=== PATIENT | female | born 1950 | race Caucasian/White ===

== ENCOUNTER 2018-05-27 01:16 | Emergency (ER) | payer MEDICARE, SELFPAY ==
[2018-05-27 01:16] VITALS: BP 196/80; PULSE 68; RESP 15; TEMP 36.7; O2SAT 98; BMI 38.7
[2018-05-27 01:19] VITALS: O2SAT 97
--- NOTE | 2018-05-27 01:37 | RAD_ITS ---
STUDY: X-RAY CHEST REASON FOR EXAM: Female, 67 years old. Cough for several weeks. Difficulty catching breath. TECHNIQUE: PA and lateral chest. COMPARISON: None. FINDINGS: The lungs are clear and expanded. There is no demonstrated pleural abnormality. Moderately elevated right hemidiaphragm. Normal size heart. Normal mediastinum and mark. Normal visualized pulmonary arteries. Normal visualized aortic arch and descending thoracic aorta. Normal visualized thoracic spine. Degenerative changes of both shoulders. There is no demonstrated abnormality of the visualized soft tissue structures of the upper abdomen. RAD/Chest PA and Lateral IMPRESSION: No acute cardiopulmonary disease. Elevated right hemidiaphragm. Electronically Signed: Maxx Vieyra MD at 2:30 EDT , Service support ,
[2018-05-27] MEDS: Albuterol 2.5 MG/3 ML VIAL.NEB. INHALATION (01:52)
[2018-05-27 01:53] VITALS: PULSE 70; RESP 19
[2018-05-27] MEDS: Ipratropium/Albuterol Sulfate 3 ML AMPUL.NEB INHALATION (01:53)
[2018-05-27 02:10] LABS: Absolute Lymphocyte Count 1.77 X10^3/ul (0.83-4.51); Absolute Neutrophil Count 4.7 X10^3/uL (2.0-7.7); Basophil# 0.04 X10^3/uL; Basophil% 0.5 % (0-1); Eosinophil# 0.45 X10^3/uL; Eosinophils% 5.5 % (0-5); Hematocrit 41.4 % (37-47); Hemoglobin 14.4 g/dl (12.0-15.0); Lymphocyte # 1.77 X10^3/ul (4.0); Lymphocyte % 21.7 % (19-41); Mean Corp Hgb Conc 34.8 g/gl (32-36); Mean Corpuscular Hgb 30.2 pg (27.0-32.0); Mean Corpuscular Volume 86.8 fL (81-99); Mean Platelet Vol. 11.9 fl (6.2-12.0); Monocyte# 1.23 X10^3/uL; Monocyte% 15.1 % (0-10); Neutrophil # 4.65 X10^3/uL (2.7-7.7); Platelet Count 195 K/mm3 (150-450); RBC Distribution Width CV 12.5 % (11.6-14.6); Red Blood Count 4.77 M/mm3 (4.2-5.4); White Blood Count 8.2 K/mm3 (4.4-11.0)
[2018-05-27 02:11] LABS: POSITIVE COUNT NO; POSITIVE DIFFERENTIAL NO; POSITIVE MORPHOLOGY NO
[2018-05-27 02:35] LABS: Anion Gap 7 (5-15); BUN 23 mg/dL (7-18); BUN/Creat Ratio 26.7 RATIO (10-20); Calcium,Total 8.4 mg/dL (8.5-10.1); Chloride 103 mmol/L (98-107); Creatinine, Serum 0.86 mg/dL (0.55-1.02); EST Glomerular Filtration Rate 70 mL/min (>60); Est Glom Filt Rate - Afr Amer 85 mL/min (>60); Estimated Creatinine Clearance 59.42 ml/min; Glucose 113 mg/dL (74-106); Potassium 4.2 mmol/L (3.5-5.1); Sodium Level 135 mmol/L (136-145)
[2018-05-27] MEDS: Doxycycline 100 MG CAPSULE PO (03:36)
--- NOTE | 2018-05-27 03:37 | ED.DCSUM_ITS ---
- ER Visit Summary Date of Service: 05/27/18 Chief Complaint: Nonproductive cough for 2 and half weeks with increased shortness of breath this evening after drinking honey History of Present Illness: The patient is a 67 F who has had a nonproductive cough for 2 and half weeks. She is a non-smoker. She denies headache, rhinorrhea, congestion, earache, tinnitus, sore throat, fever or chills. She states she had some difficulty after using the restroom. She drank honey thinking this would make her cough better. She reported increased coughing. She denies history of coronary disease. She denies history of PE or DVT. She has no risk factors for either. She denies leg pain, swelling or discoloration. She denies any GI, or coronary symptoms. Please read written note for complete detail Physical Examination: Blood pressure is elevated 196/80. She is not febrile nor she hypoxic. Head is atraumatic normocephalic. Pupils are equal round reactive. Extraocular muscles are intact. TMs are pearly white with landmarks noted. Nares patent with no drainage. Posterior pharynx without erythema or exudate. Uvula is midline. There is no dysphonia or dysphasia. Trachea is midline. There is no stridor with auscultation of the neck. Heart is regular without murmur, gallop or rub. Lungs revealed diminished breath sounds increase x-ray phase with wheezing noted bilaterally. There is no egophony. Abdomen is soft nontender. There is no hepatosplenomegaly. Bowel sounds are present normal. There is no asymmetry, swelling, discoloration, leg vein distention, palpable cords or tenderness along the distribution of the deep venous system. Neuro exam is nonfocal Test Results: Two-view chest x-ray was interpreted by me as negative for infiltrate. There is no cardiomegaly, mediastinum appears normal. There is no abnormality osseous structures. CBC is unremarkable. BMP is unremarkable. Emergency Department Course and Treatment: To evaluate patient's cough for the past 2 and half weeks with increased shortness of breath chest x-ray was obtained to evaluate for pneumonia. Blood work was obtained in the event she had pneumonia to stratify her for outpatient versus inpatient treatment. Because of wheezing she was treated with aerosol. On reassessment she was noted to be wheeze free with more air movement. She also reports her cough is less. With forced expiration there is a fine wheeze noted. Treatment Plan: Since she has minimal wheezing with forced expiration after treatment she received a dose of Decadron, first dose of antibiotic, doxycycline 100 mg, Hycodan cough syrup and respiratory therapy to instruct on use of inhaler since she has not used one before. Disposition: Discharged home in stable improved condition Impression: 1. Bronchitis 2. Bronchospasm 3. Transient hypertension in a known hypertensive patient This note was generated with [employer] dictation software. It may contain incorrect words, spelling, and punctuation that were not noted in review of the chart prior to signing ED Disposition - Plan for ED Patient: Disposition: Home or Assisted Living Chief Complaint: Cough Instructions: ED Upper Resp Infec Abx Tx Prescriptions: Hydrocodone Bit/Homatropine [Hycodan Syrup] 5 ml PO Q6H PRN PRN #60 udc PRN Reason: Cough Doxycycline Monohydrate 100 mg PO BID #14 cap Additional Instructions: Follow-up with Dr. Briggs in 3-5 days if there is no improvement.
[2018-05-27 03:38] VITALS: BP 168/79; PULSE 61; RESP 17; O2SAT 96
== END 2018-05-27 03:52 | disposition home or self-care (01) ==
PROVIDERS: Emergency Provider Emergency Medicine; Family Provider Internal Medicine; PCP Internal Medicine
DX: J40 Bronchitis, not specified as acute or chronic (principal); I10 Essential (primary) hypertension; Z87.01 Personal history of pneumonia (recurrent)
CPT/HCPCS: 71046; 80048; 85025; 94640; 99285; A4216

== ENCOUNTER → 2018-08-21 08:48 | Outpatient (CLI) | payer MEDICARE, SELFPAY ==
--- NOTE | 2018-08-21 08:50 | US_ITS ---
STUDY: THYROID ULTRASOUND REASON FOR EXAM: Female, 67 years old. Multinodular goiter. TECHNIQUE: Ultrasound evaluation of the thyroid was performed with real-time and static merritt-scale imaging. COMPARISON: June 04, 2017. FINDINGS: RIGHT LOBE: The right lobe of the thyroid gland measures 5.7 x 2.9 x 2 point cm. There is a homogeneous echotexture. Multiple nodules throughout the right outer. The largest in the lower pole measures 2.4 x 2.6 x 2.2 cm and is predominantly solid with cystic areas. LEFT LOBE: The left lobe of the thyroid gland measures 5.2 x 2.5 x 2.5 cm. There is a heterogeneous echotexture. There are multiple nodules. The largest is a complex 1.7 x 1.7 x 1 cm nodule in the mid thyroid. There is peripheral and intrahepatic nodular vascularity. ISTHMUS: The isthmus measures 0.6 cm. The regional lymph nodes are normal. US/Thyroid IMPRESSION: Findings consistent with multinodular goiter. No major interval change. Electronically Signed: Haider Miller DO at 22:30 EDT Tel [phone], Service support ,
== END ==
PROVIDERS: Family Provider Internal Medicine; PCP Internal Medicine; Referring Provider Internal Medicine; Visit Provider Internal Medicine
DX: E04.2 Nontoxic multinodular goiter (principal)
CPT/HCPCS: 76536

== ENCOUNTER → 2019-05-28 13:38 | Outpatient (CLI) | payer MEDICARE, SELFPAY ==
[2019-05-02 09:33] VITALS: BMI 38.7
[2019-05-28 15:18] LABS: Hematocrit 43.1 % (37-47); Hemoglobin 14.8 g/dL (12.0-15.0); Mean Corp Hgb Conc 34.3 g/dL (32-36); Mean Corpuscular Hgb 30.8 pg (27.0-32.0); Mean Corpuscular Volume 89.6 fL (81-99); Mean Platelet Vol. 12.4 fl (6.2-12.0); Platelet Count 249 K/mm3 (150-450); RBC Distribution Width SD 39.2 fl (35.1-43.9); Red Blood Count 4.81 M/mm3 (4.2-5.4); White Blood Count 6.1 K/mm3 (4.4-11.0)
== END ==
PROVIDERS: Family Provider Internal Medicine; PCP Internal Medicine; Referring Provider Otolaryngology; Visit Provider Otolaryngology
DX: J39.2 Other diseases of pharynx (principal)
CPT/HCPCS: 36415; 85027

== ENCOUNTER → 2019-06-01 15:42 | Outpatient (CLI) | payer MEDICARE, SELFPAY ==
[2019-05-02 09:33] VITALS: BMI 38.7
--- NOTE | 2019-06-01 12:05 | MASS_PTH ---
PATIENT: CUAUHTEMOC ARRINGTON LOC: [facility] U#:[id number] AGE/SX: 75/F ROOM: RE06/01/[address]: Dr. Tirso Sharma MD : 1950 BED: DIS: SPEC #: [id number] RECD: 06/01/19 15:11 STATUS: TORIBIO JOANN #: [id number] DAVID: 06/01/19 12:[address]: Tirso Sharma DEPT: SURGICAL PATHOLOGY RECD BY: Jayesh Valentino ENTERED: 06/02/19 08:55 SP TYPE: Mass OTHR DR: Dr. Nora Briggs, [facility] Tissues: Oropharynx, NOS Procedures: Surgery Specimen Level IV HEADER OPERATION: Excision oropharyngeal mass PRE-OP DIAGNOSIS: Oropharyngeal mass TISSUE SUBMITTED: Oropharyngeal mass MICROSCOPIC DIAGNOSIS Oropharyngeal mass, biopsy: Chronic inflammation. Dilated ducts. Negative for malignancy. See microscopic description and comment. SJ:virginie 06/02/19 COMMENT Case has been reviewed in consultation with Dr. Swenson who concurs with the above diagnosis. IDC:AM MICROSCOPIC DESCRIPTION Slides are reviewed. The specimen consists of minor salivary gland tissue with overlying squamous epithelium. A few dilated ducts are noted. Moderate chronic inflammation is also noted. GROSS DESCRIPTION Received is one container labeled with the patient's name and not further designated. The specimen consists of an irregular fragment of morgan tissue measuring 1 x 0.5 x 0.2 cm. The specimen is bisected and totally submitted in one cassette. / AM:virginie 06/02/19 TC:5 CPT: 12929
== END ==
PROVIDERS: Family Provider Internal Medicine; PCP Internal Medicine; Referring Provider Otolaryngology; Visit Provider Otolaryngology
DX: J39.2 Other diseases of pharynx (principal)
CPT/HCPCS: 88305

== ENCOUNTER → 2019-07-24 11:15 | Outpatient (CLI) | payer MEDICARE, SELFPAY ==
[2019-05-02 09:33] VITALS: BMI 38.7
--- NOTE | 2019-07-24 11:18 | US_ITS ---
STUDY: THYROID ULTRASOUND REASON FOR EXAM: Female, 68 years old. Multiple nodular goiter TECHNIQUE: Ultrasound evaluation of the thyroid was performed with real-time and static merritt-scale imaging. COMPARISON: August 21, 2018. FINDINGS: RIGHT LOBE: The right lobe of the thyroid gland measures 5.2 x 3.2 x 2.7 cm. There is a heterogeneous echotexture. There is a mid to lower thyroid nodular mass measuring 2.6 x 2.8 x 2.2 cm, similar to previous study. It is again noted to be predominantly solid with some cystic areas. Other subcentimeter nodules on the previous study are not appreciated LEFT LOBE: The left lobe of the thyroid gland measures 4.5 x 2.3 x 2.2 cm. There is a heterogeneous echotexture. There is a relatively stable cystic 6 x 9 x 5 mm mid thyroid nodule. This is a relatively stable mid thyroid 1.4 x 1.5 x 1.1 cm mildly hypoechoic, likely solid nodule. There is a lower pole 1.6 x 1.3 x 1.3 cm solid nodule, larger than on previous study. ISTHMUS: The isthmus measures 5 mm . The regional lymph nodes are normal. US/Thyroid IMPRESSION: Relatively stable nodules as noted of the thyroid. Larger nodule in the lower pole of the left thyroid lobe. Electronically Signed: David Menon DO at 21:54 EDT Tel [phone], Service support ,
== END ==
PROVIDERS: Family Provider Internal Medicine; PCP Internal Medicine; Referring Provider Internal Medicine; Visit Provider Internal Medicine
DX: E04.2 Nontoxic multinodular goiter (principal)
CPT/HCPCS: 76536

== ENCOUNTER → 2019-10-12 10:15 | Outpatient (CLI) | payer MEDICARE, SELFPAY ==
[2019-05-02 09:33] VITALS: BMI 38.7
[2019-10-12 11:56] LABS: Thyroid Stim Hormone (TSH) 1.13 uIU/mL (0.358-3.74)
== END ==
PROVIDERS: Family Provider Internal Medicine; PCP Internal Medicine
DX: E04.2 Nontoxic multinodular goiter (principal)
CPT/HCPCS: 36415; 84443

== ENCOUNTER → 2021-05-04 09:23 | Outpatient (CLI) | payer MEDICARE, SELFPAY ==
[2019-05-02 09:33] VITALS: BMI 38.7
[2021-05-04 10:44] LABS: Vitamin D,25 Hydroxy 61.7 ng/mL
[2021-05-04 10:52] LABS: Anion Gap 7 (5-15); BUN 21 mg/dL (7-18); BUN/Creat Ratio 30.7 RATIO (10-20); Calcium,Total 8.8 mg/dL (8.5-10.1); Chloride 105 mmol/L (98-107); Creatinine, Serum 0.68 mg/dL (0.55-1.02); EST Glomerular Filtration Rate 90 mL/min (>60); Est Glom Filt Rate - Afr Amer 109 mL/min (>60); Glucose 100 mg/dL (74-106); Potassium 4.5 mmol/L (3.5-5.1); Sodium Level 137 mmol/L (136-145); Thyroid Stim Hormone (TSH) 1.04 uIU/mL (0.358-3.74)
== END ==
PROVIDERS: PCP Internal Medicine; Referring Provider Internal Medicine Endocrinology, Diabetes & Metabolism; Visit Provider Internal Medicine Endocrinology, Diabetes & Metabolism
DX: E04.2 Nontoxic multinodular goiter (principal); E55.9 Vitamin D deficiency, unspecified
CPT/HCPCS: 36415; 80048; 82306; 84443

== ENCOUNTER 2021-12-20 12:44 | Outpatient (CLI) | payer MEDICARE, SELFPAY ==
--- NOTE | 2021-12-20 12:48 | BI_ITS ---
MAMMOGRAPHY - BILATERAL SCREENING REASON FOR EXAM: Female, 71 years old. Routine annual screening examination. PERTINENT HISTORY: Non-contributory. Personal history of melanoma. TECHNIQUE: Digital bilateral breast desire (3D mammographic acquisition) in the CC and MLO projections. 2-D mediolateral oblique (MLO) and craniocaudad (CC) views of both breasts were obtained. CAD: Full Field Digital Mammography with Computer Added Detection was performed. COMPARISON: Comparison is made with prior study dated 07/24/2013. FINDINGS: Breast Composition: The breasts are almost entirely fatty. There are no dominant masses or suspicious calcifications. Multiple scattered calcifications in both breasts. Surgical clips are seen in the right axillary region in keeping with a history of prior right axillary node dissection for melanoma. No other significant abnormalities are identified. There has been no significant change since the prior study. BI/SCRN MAMM (CAD)W/DESIRE BILAT IMPRESSION: Stable bilateral screening mammogram. Yearly follow-up mammogram recommended. (A) ASSESSMENT CATEGORY: BIRADS Category 2: Benign. A letter regarding these results will be sent to the patient by the facility within 30 days. Approximately 10% of breast cancers are not detected by mammography. A normal mammogram should not delay biopsy of a clinically suspicious abnormality. [id number] Electronically Signed: Jono Olivares MD at 13:42 EST ,
== END 2021-12-20 23:59 | disposition home or self-care (01) ==
LOC: OPBI 12:45
PROVIDERS: PCP Internal Medicine; Referring Provider Internal Medicine; Visit Provider Internal Medicine
DX: Z12.31 Encounter for screening mammogram for malignant neoplasm of breast (principal)
CPT/HCPCS: 77063; 77067

== ENCOUNTER → 2022-04-13 | Outpatient (CLI) | payer MEDICARE, SELFPAY ==
[2022-04-13 17:48] LABS: ALB/GLOB Ratio 1.1 RATIO (0.9-2.4); AST(SGOT) 21 U/L (15-37); Alanine Aminotransfer ALT/SGPT 25 U/L (13-56); Albumin, Serum 3.7 g/dL (3.2-5.0); Alkaline Phosphatase 45 U/L (45-117); Anion Gap 6 (5-15); BUN 26 mg/dL (7-18); BUN/Creat Ratio 32.1 RATIO (10-20); Calcium,Total 8.8 mg/dL (8.5-10.1); Chloride 105 mmol/L (98-107); Creatinine, Serum 0.81 mg/dL (0.55-1.02); EST Glomerular Filtration Rate 74 mL/min (>60); Est Glom Filt Rate - Afr Amer 90 mL/min (>60); Globulin 3.3 g/dL (2.2-4.2); Glucose 109 mg/dL (74-106); Potassium 4.5 mmol/L (3.5-5.1); Sodium Level 138 mmol/L (136-145); Thyroid Stim Hormone (TSH) 0.91 uIU/mL (0.358-3.74)
== END | disposition home or self-care (01) ==
PROVIDERS: PCP Internal Medicine; Referring Provider Internal Medicine Endocrinology, Diabetes & Metabolism; Visit Provider Internal Medicine Endocrinology, Diabetes & Metabolism
DX: E04.2 Nontoxic multinodular goiter (principal)
CPT/HCPCS: 36415; 80053; 84443

== ENCOUNTER → 2022-11-26 | Outpatient (CLI) | payer MEDICARE, SELFPAY ==
--- NOTE | 2022-11-26 10:14 | RAD_ITS ---
INDICATION: SPINAL STENOSIS -- LUMBAR REGION EXAMINATION/TECHNIQUE: X-RAY - XR Bone Length Studies Scanograms 3 sequential AP radiographs of the lower extremities with composite image. COMPARISON: CT abdomen and pelvis December 25, 2015. FINDINGS: 5.5 degree rightward down pelvic tilt. Mild bilateral hip joint space narrowing. No coxa valgus or varus Right knee arthroplasty with mild genu valgus. No perihardware lucency or evidence of hardware failure. Left knee medial compartment joint space narrowing and moderate osteophyte formation with loss of the typical slight valgus angulation. No overt varus angulation Right lower extremity measures 53.4 cm from superior femoral head to the prosthesis intercondylar notch and 97.7 cm from superior femoral head to tibial plafond Left lower extremity measures 54.5 cm from superior femoral head to the intercondylar notch and 99.1 cm from superior femoral head to tibial plafond RAD/Bone Length IMPRESSION: Lower down pelvic tilt with leg lengths as above. Left knee medial compartment osteoarthritis. Prior right knee arthroplasty. Electronically Signed: Perfecto Holden MD at 3:52 EST ,
== END | disposition home or self-care (01) ==
LOC: RAD 10:13
PROVIDERS: PCP Internal Medicine; Referring Provider Specialist; Visit Provider Specialist
DX: M48.061 Spinal stenosis, lumbar region without neurogenic claudication (principal)
CPT/HCPCS: 77073

== ENCOUNTER → 2023-01-01 | Outpatient (CLI) | payer MEDICARE, SELFPAY ==
[2023-01-01 10:37] LABS: Vitamin D,25 Hydroxy 64.4 ng/mL
[2023-01-01 10:54] LABS: ALB/GLOB Ratio 1.1 RATIO (0.9-2.4); AST(SGOT) 14 U/L (15-37); Alanine Aminotransfer ALT/SGPT 22 U/L (13-56); Albumin, Serum 3.6 g/dL (3.2-5.0); Alkaline Phosphatase 41 U/L (45-117); Anion Gap 7 (5-15); BUN 16 mg/dL (7-18); BUN/Creat Ratio 22.9 RATIO (10-20); Calcium,Total 8.6 mg/dL (8.5-10.1); Chloride 104 mmol/L (98-107); EST Glomerular Filtration Rate 88 mL/min (>60); Est Glom Filt Rate - Afr Amer 106 mL/min (>60); Globulin 3.2 g/dL (2.2-4.2); Glucose 97 mg/dL (74-106); Potassium 4.1 mmol/L (3.5-5.1); Protein, Total 6.8 g/dL (6.4-8.2); Sodium Level 138 mmol/L (136-145); Thyroid Stim Hormone (TSH) 0.96 uIU/mL (0.358-3.74)
== END | disposition home or self-care (01) ==
LOC: LAB 09:34
PROVIDERS: PCP Internal Medicine; Visit Provider Internal Medicine Endocrinology, Diabetes & Metabolism
DX: E04.2 Nontoxic multinodular goiter (principal); E55.9 Vitamin D deficiency, unspecified
CPT/HCPCS: 36415; 80053; 82306; 84443

== ENCOUNTER → 2023-02-12 | Outpatient (CLI) | payer MEDICARE, SELFPAY ==
--- NOTE | 2023-02-12 09:06 | RAD_ITS ---
STUDY: X-RAY - ESOPHAGUS (BARIUM SWALLOW) WITH FLUOROSCOPY REASON FOR EXAM: Female, 72 years old. DYSPHAGIA TECHNIQUE: 30 view(s) of the esophagus were obtained following swallowing of barium. FLUOROSCOPY TIME (if supplied): (49 seconds) minutes/seconds. 54.12 mGy COMPARISON: None. FINDINGS: There is no demonstrated esophageal foreign body. There is no demonstrated stricture or mucosal abnormality. Small hiatal hernia with weblike stenosis at the gastroesophageal junction. The patient ingested a 12 mm tablet of barium. The tablet is trapped at the gastroesophageal junction. There is atherosclerotic calcification of the aortic arch with tortuosity of the descending aorta. Normal visualized pulmonary parenchyma. There are diffuse degenerative changes of the visualized thoracic spine. RAD/Esophagus Dual Contrast IMPRESSION: Small sliding hiatal hernia with a weblike stenosis at the gastroesophageal junction with trapping of the 12 mm tablet of barium. Electronically Signed: Jono Olivares MD at 15:34 EDT ,
== END | disposition home or self-care (01) ==
PROVIDERS: PCP Internal Medicine; Referring Provider Internal Medicine; Visit Provider Internal Medicine
DX: R13.10 Dysphagia, unspecified (principal)
CPT/HCPCS: 74221

== ENCOUNTER → 2023-06-03 | Outpatient (CLI) | payer MEDICARE, SELFPAY ==
[2023-06-03 13:03] LABS: Anion Gap 5 (5-15); BUN 19 mg/dL (7-18); BUN/Creat Ratio 20.4 RATIO (10-20); Calcium,Total 10.9 mg/dL (8.5-10.1); Chloride 99 mmol/L (98-107); Creatinine, Serum 0.93 mg/dL (0.55-1.02); EST Glomerular Filtration Rate 63 mL/min (>60); Est Glom Filt Rate - Afr Amer 76 mL/min (>60); Glucose 105 mg/dL (74-106); Potassium 4.3 mmol/L (3.5-5.1); Sodium Level 135 mmol/L (136-145)
== END | disposition home or self-care (01) ==
LOC: LAB 10:44
PROVIDERS: PCP Internal Medicine; Referring Provider Internal Medicine Endocrinology, Diabetes & Metabolism; Visit Provider Internal Medicine Endocrinology, Diabetes & Metabolism
DX: E04.2 Nontoxic multinodular goiter (principal)
CPT/HCPCS: 36415; 80048

== ENCOUNTER → 2023-06-10 | Outpatient (CLI) | payer MEDICARE, SELFPAY ==
[2023-06-10 11:39] LABS: Anion Gap 5 (5-15); BUN 19 mg/dL (7-18); BUN/Creat Ratio 18.6 RATIO (10-20); Calcium,Total 9.1 mg/dL (8.5-10.1); Chloride 100 mmol/L (98-107); Creatinine, Serum 1.02 mg/dL (0.55-1.02); EST Glomerular Filtration Rate 57 mL/min (>60); Est Glom Filt Rate - Afr Amer 68 mL/min (>60); Glucose 92 mg/dL (74-106); Sodium Level 134 mmol/L (136-145)
== END | disposition home or self-care (01) ==
LOC: LAB 10:21
PROVIDERS: PCP Internal Medicine; Referring Provider Internal Medicine Endocrinology, Diabetes & Metabolism; Visit Provider Internal Medicine Endocrinology, Diabetes & Metabolism
DX: E04.2 Nontoxic multinodular goiter (principal)
CPT/HCPCS: 36415; 80048

== ENCOUNTER → 2023-07-09 | Outpatient (CLI) | payer MEDICARE, SELFPAY ==
[2023-07-09 11:37] LABS: Anion Gap 3 (5-15); BUN 15 mg/dL (7-18); Calcium,Total 8.7 mg/dL (8.5-10.1); Chloride 101 mmol/L (98-107); Creatinine, Serum 0.88 mg/dL (0.55-1.02); EST Glomerular Filtration Rate 67 mL/min (>60); Est Glom Filt Rate - Afr Amer 81 mL/min (>60); Glucose 97 mg/dL (74-106); Potassium 4.4 mmol/L (3.5-5.1); Sodium Level 136 mmol/L (136-145)
== END | disposition home or self-care (01) ==
PROVIDERS: PCP Internal Medicine; Referring Provider Nurse Practitioner Adult Health; Visit Provider Nurse Practitioner Adult Health
DX: E89.0 Postprocedural hypothyroidism (principal)
CPT/HCPCS: 36415; 80048; 84443

== ENCOUNTER → 2023-08-13 | Outpatient (CLI) | payer MEDICARE, SELFPAY ==
[2023-08-13 11:41] LABS: ALB/GLOB Ratio 1.1 RATIO (0.9-2.4); AST(SGOT) 13 U/L (15-37); Alanine Aminotransfer ALT/SGPT 21 U/L (13-56); Albumin, Serum 3.7 g/dL (3.2-5.0); Alkaline Phosphatase 46 U/L (45-117); Anion Gap 3 (5-15); BUN 20 mg/dL (7-18); BUN/Creat Ratio 23.8 RATIO (10-20); Calcium,Total 8.6 mg/dL (8.5-10.1); Chloride 104 mmol/L (98-107); Creatinine, Serum 0.84 mg/dL (0.55-1.02); EST Glomerular Filtration Rate 71 mL/min (>60); Est Glom Filt Rate - Afr Amer 86 mL/min (>60); Globulin 3.4 g/dL (2.2-4.2); Glucose 89 mg/dL (74-106); Potassium 4.1 mmol/L (3.5-5.1); Protein, Total 7.1 g/dL (6.4-8.2); Sodium Level 137 mmol/L (136-145)
[2023-08-13 11:45] LABS: Vitamin D,25 Hydroxy 67.3 ng/mL
== END | disposition home or self-care (01) ==
LOC: LAB 09:51
PROVIDERS: PCP Family Medicine; Referring Provider Internal Medicine Endocrinology, Diabetes & Metabolism; Visit Provider Internal Medicine Endocrinology, Diabetes & Metabolism
DX: E89.0 Postprocedural hypothyroidism (principal); E55.9 Vitamin D deficiency, unspecified
CPT/HCPCS: 36415; 80053; 82306; 84443

== ENCOUNTER 2023-09-02 11:00 | Outpatient (RCR) | payer MEDICARE, SELFPAY ==
--- NOTE | 2023-07-17 15:00 | HP.SP.EVAL ---
History History Date of Eval: 07/16/23 Attending Doctor: KWAN CARTAGENA Reason for Referral: [facility] Medical Diagnosis (from RX): Dysphonia Date of Onset of Diagnosis: 05/28/23 Previous speech therapy: No Other Relevant Medical History/Diagnoses/Surgery: Removal of thyroid on 05/28/23, endoscopy for dilation with balloon February 2023. Medications related to this diagnosis: Toprol, Amiloride, Vitamin D, Synthroid, Calcium, Calcitrol, Aspirin, Vitamin E, Garlic, Probiotic, Hempworx CBD oil Smoking Status: Never smoker Hx Smoking: No Hx Tobacco Use: No Pain Is pain an issue with your current prescribed condition?: No Personal Preferred language: Pry[place]in[place] Patient Allergies Allergies Allergies: Allergies fluticasone [From Flonase] Allergy (Mild, Verified 05/09/23 16:37) UNKNOWN hydrochlorothiazide Allergy (Mild, Verified 05/09/23 16:37) UNKNOWN salicylates Allergy (Mild, Verified 05/09/23 16:37) UNKNOW Corticosteroids (Glucocorticoids) Allergy (Verified 05/09/23 16:37) NEEDS FOLLOW-UP codeine Adverse Reaction (Verified 05/09/23 16:37) Vomiting dexamethasone Adverse Reaction (Verified 05/09/23 16:37) All blood cells low erythromycin base [Erythromycin Base] Adverse Reaction (Verified 05/09/23 16:37) Unknown fluticasone propionate [From Flonase] Adverse Reaction (Verified 05/09/23 16:37) Unknown lisinopril [From Zestril] Adverse Reaction (Verified 05/09/23 16:37) Unknown Penicillins Adverse Reaction (Verified 05/09/23 16:37) Unknown rofecoxib [From Vioxx] Adverse Reaction (Verified 05/09/23 16:37) Unknown terbinafine HCl [From Lamisil] Adverse Reaction (Verified 05/09/23 16:37) Unknown tetracycline [Tetracycline] Adverse Reaction (Verified 05/09/23 16:37) Unknown Subjective Voice Informal Questioner Do you scream (anger, sporting event, work, noisy envirmonment): None Do you raise your voice (e.g. parenting, calling from room to room, etc.): Less than average Do you talk for long periods of time without a break (teacher, tony): Less than average Are you a talker: Less than average Do you clear your throat: More than average Do you cough: More than average Do you sing: More than average How often do you use the telephone: Average Do you do impersonations, character voices or unusual sound effects: None Intubation Was the Client intubated: Yes If yes, list date, duration, and explanation: 05/28/23 during total thyroidectomy Intake Water (ounces): 100 Coffee (ounces): 0 Tea (ounces): 0 Soda (ounces): 0 Energy drinks (ounces): 0 Milk (ounces): 0 Juice (ounces): 0 Sports drinks (ounces): 0 Alcoholic Beverage Intake Intake: Never Other Product Usage Do you use products containing menthol (if yes, list): Yes ([place] honey lemon cough drops) Do you take Vitamin C Supplements (if yes, list amt (mg)/day: No Objective Voice Objective data Objective Data: Objective data: Sound pressure level (SPL acoustic correlation of vocal loudness) was measured with a sound level meter at a distance of 40 cm from the patient's mouth. Average conversational loudness is 70-80 dB and sustained phonation duration is 15 to 20 seconds for a typical adult. Sustained Phonation Intensity (dB SPL): 62 Sustained Phonatin duration (seconds): 11 Is the individual stimulable to increase vocal intensity: No Acoustic Analysis Acoustic Analysis: These results represent reading and conversational decibel levels that may significantly reduce speech intelligibility and communicative effectiveness. Amplitude Intensity Conversational (Average) in dB SPL: 56 Observational Assessment S/Z Ratio: .33 Sustained /s/: 7 Sustained /z/: 21 Greater than 1:4 (indicates dysfunction): No Subjective Clinical Impression Adult Clinical Impression Vocal fatigue: a 'tired' voice or feeling of excessive effort to phonate: Present Voice deterioration: reduction of volume or vocal quality with prolonged use: Present Non-Phonatory Behaviors/Respiration Reduced loudness or vocal weakness: Present Limited breath support for speech: Present Clavicular breathing: excessive movement of the chest and shoulders during inspiration: Present Reference: Neuro-QoL instrument Radiation Oncology Patient Other Other Surgical information: -: Surgery was on 05/28/23. Per Physician report: Thyroid was extremely large, multi nodular and encompassed her larynx and esophagus. Inflammation in this area will limit laryngeal elevation. Comments Pitch: -: The patient has a lower than average voice for a female of her age. She can change pitch with limited range. This impacts her ability to sing and may also impaher during conversation as she Plan Plan Plan: Speech therapy is warranted for functional deficits in voice following surgery. Recommendations Treatment Warranted: Yes Treatment Warranted: Voice Progress Prognosis: Good Frequency Frequency: 1x/Week Duration: 3 Months Visits in this POC: 12 Patient/Family Goal Patient/Family Goal: Patient's goal is to have an increased pitch range. Goals that are Established Determination:: Goals will be added/modified as deemed necessary and appropriate. Therapy will be discontinued when results of re-evaluation indicate therapy is no longer needed or lack of progress has been documented. Goal #1-5 Goal #1: Patient will establish volitional control of respiration evidenced by utilization of diaphragmatic breathing during structured tasks within 4 weeks with 100% accuracy independently. Goal #2: Patient will sustain phonation for 12-15 seconds on 2/3 sessions with minimal cues for breath support/control for functional tasks including conversation and singing. Goal #3: Patient will complete laryngeal elevation exercises with minimal cues on 2/3 consecutive sessions with progression to independent home completion. Education Patient has Indicated that the Following Identified Educational Needs: None The Patient has indicated that they have no educational or learning abilities that may effect their care.: Yes Patient Instruction Patient Education: Diagnosis, Treatment Plan, Goals and Home Exercise Program Person Taught: Patient Response to teaching: Verbalize understanding
--- NOTE | 2023-09-20 14:47 | HP.SP.DC_ITS ---
ST Discharge Summary Discharged: Discharge: ERINN ARRINGTON is a 73 year old female who was seen for initial voice evaluation at [facility] on 07/16/23 secondary to dx of hoarseness/dysphonia following a total thyroidectomy on 05/28/23. Per Surgeon report: Thyroid was extremely large, multi nodular and encompassed her larynx and esophagus. Inflammation in this area will limit laryngeal elevation. Per patient report, after surgery, the surgeon scoped her and reported her vocal folds looked okay. At her post-op appt Pt reporting that she was unable to reach higher pitches like she used to be able to while singing, and that she also felt her fundamental frequency was lower. She was then referred to speech therapy. Pt attended initial evaluation plus 4 additional sessions of voice therapy. Following minimal to no progress within the 4 weeks of intervention, recommended Pt participate in a follow-up evaluation with otolaryngology. Pt made an appt with [facility] on 09/19/23. Report back from Dr. 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 Her vocal cords are moving well without signs of recurrent laryngeal nerve injury. She should give this time to see if there is any return of function. Reviewed what this verbiage meant with Erinn and discussed how therapy would not assist with regenerating nerve growth. Pt understanding and reports that what Dr. Sharma stated as well. Told Pt to call if she has any further questions. Thank you for allowing me to participate the care of your Pt. Will reevaluate at Pt?s request following script from physician.
== END 2023-09-02 19:00 | disposition home or self-care (01) ==
LOC: SP 11:00
PROVIDERS: PCP Family Medicine
DX: R49.0 Dysphonia (principal)
CPT/HCPCS: 92507; 92524

== ENCOUNTER → 2023-10-07 | Outpatient (CLI) | payer MEDICARE, SELFPAY ==
--- NOTE | 2023-10-07 09:36 | RAD_ITS ---
STUDY: X-RAY - LEFT ANKLE REASON FOR EXAM: Female, 73 years old. Pain following injury. TECHNIQUE: 3 view(s) of the ankle. COMPARISON: None. FINDINGS: Normal visualized distal tibia and fibula. Normal medial and lateral malleoli. Normal tibiotalar articulation and ankle mortise. A spur is seen at the insertion of the Achilles tendon. The visualized subtalar, talonavicular, calcaneocuboid and tarsal articulations are normal. Findings suggestive of an old avulsion fracture along the dorsal posterior aspect of the tarsonavicular bone. Soft tissue swelling RAD/Ankle min 3 Views IMPRESSION: Soft tissue swelling. Electronically Signed: Jono Olivares MD at 10:17 EST ,
--- NOTE | 2023-10-07 09:36 | RAD_ITS ---
STUDY: X-RAY - LEFT FOOT CLINICAL: Female, 73 years old. Pain following injury. TECHNIQUE: view(s) of the foot. COMPARISON: None. FINDINGS: Normal talus, calcaneus, and tarsal bones. Normal visualized subtalar, talonavicular, calcaneocuboid, tarsal and tarsometatarsal articulations. Old avulsion fracture along the superior posterior aspect of the tarsonavicular bone. Normal metatarsi. There is degenerative arthrosis of the metatarsophalangeal joint of the hallux with a hallux valgus deformity. Normal tibial and fibular sesamoid bones. Normal interphalangeal joint of the great toe. Normal phalanges of the great toe. Normal second through fifth metatarsophalangeal joints. Normal interphalangeal joints and phalanges of the lesser toes. Vascular calcification. RAD/Foot min 3 Views IMPRESSION: No acute fracture is seen. Old avulsion fracture along the superior posterior aspect of the tarsonavicular bone. Electronically Signed: Jono Olivares MD at 10:16 EST ,
== END | disposition home or self-care (01) ==
LOC: MTRAD 09:36
PROVIDERS: PCP Family Medicine; Referring Provider Physician Assistant; Visit Provider Physician Assistant
DX: R52 Pain, unspecified (principal)
CPT/HCPCS: 73610; 73630

== ENCOUNTER → 2023-10-30 | Outpatient (CLI) | payer MEDICARE, SELFPAY ==
[2023-10-30 10:46] LABS: Erythrocyte Sedimentation Rate 9 mm/hr (0-30)
[2023-10-30 10:48] LABS: Hematocrit 38.6 % (37-47); Hemoglobin 12.9 g/dL (12.0-15.0); Mean Corp Hgb Conc 33.4 g/dL (32-36); Mean Corpuscular Hgb 32.8 pg (27.0-32.0); Mean Corpuscular Volume 98.2 fL (81-99); Mean Platelet Vol. 11.9 fl (6.2-12.0); Platelet Count 232 K/mm3 (150-450); RBC Distribution Width CV 12.3 % (11.6-14.6); RBC Distribution Width SD 44.8 fl (35.1-43.9); Red Blood Count 3.93 M/mm3 (4.2-5.4); White Blood Count 7.2 K/mm3 (4.4-11.0)
[2023-10-30 12:13] LABS: CRP < 2.90 mg/L (0.0-3.0); Rheumatoid Factor < 10.0 IU/mL (<15)
[2023-10-31 12:08] LABS: ANTINUCLEAR ANTIBODIES DIRECT Negative (Negative); CCP IgG Antibodies 6 units (0-19)
== END | disposition home or self-care (01) ==
LOC: MTLAB 09:28
PROVIDERS: PCP Family Medicine; Referring Provider Podiatrist; Visit Provider Podiatrist
DX: M79.671 Pain in right foot (principal); M79.672 Pain in left foot
CPT/HCPCS: 36415; 85027; 85652; 86038; 86140; 86200; 86225; 86235; 86431

== ENCOUNTER → 2023-11-22 | Outpatient (CLI) | payer MEDICARE, SELFPAY ==
[2023-11-22 11:49] LABS: PTHIN 38.2 pg/mL (18.4-80.1)
[2023-11-22 12:02] LABS: ALB/GLOB Ratio 1.1 RATIO (0.9-2.4); AST(SGOT) 14 U/L (15-37); Alanine Aminotransfer ALT/SGPT 20 U/L (13-56); Albumin, Serum 3.5 g/dL (3.2-5.0); Alkaline Phosphatase 39 U/L (45-117); Anion Gap 2 (5-15); BUN 17 mg/dL (7-18); BUN/Creat Ratio 20.3 RATIO (10-20); Calcium,Total 8.4 mg/dL (8.5-10.1); Chloride 106 mmol/L (98-107); Creatinine, Serum 0.84 mg/dL (0.55-1.02); EST Glomerular Filtration Rate 71 mL/min (>60); Est Glom Filt Rate - Afr Amer 86 mL/min (>60); Globulin 3.2 g/dL (2.2-4.2); Glucose 115 mg/dL (74-106); Protein, Total 6.7 g/dL (6.4-8.2); Sodium Level 137 mmol/L (136-145); Thyroid Stim Hormone (TSH) 2.89 uIU/mL (0.358-3.74)
== END | disposition home or self-care (01) ==
LOC: LAB 10:57
PROVIDERS: PCP Family Medicine; Referring Provider Internal Medicine Endocrinology, Diabetes & Metabolism; Visit Provider Internal Medicine Endocrinology, Diabetes & Metabolism
DX: E89.0 Postprocedural hypothyroidism (principal); M85.89 Other specified disorders of bone density and structure, multiple sites
CPT/HCPCS: 36415; 80053; 83970; 84443

== ENCOUNTER → 2024-01-02 | Outpatient (CLI) | payer MEDICARE, SELFPAY ==
--- NOTE | 2024-01-02 12:41 | ECHOD_ITS ---
Reason For Study: MURMUR Procedure This was a 2D Doppler, Color Flow transthoracic echocardiogram. Exam performed in department. Left Ventricle Normal LV size. Left ventricular systolic function is normal. The estimated ejection fraction is 70 %. Stage 1 diastolic dysfunction. No regional wall motion abnormalities noted. Right Ventricle Normal RV size. Normal systolic function. Atria Normal left atrium. Normal right atrium. Hypermobile atrial septum. Bubble contrast study negative for right to left interatrial shunt. Mitral Valve There is mild mitral annular calcification. Mild (1+) eccentric mitral valve insufficiency. Tricuspid Valve Normal tricuspid valve. Mild tricuspid valve insufficiency. Pulmonary artery systolic pressure is 35 mmHg. Aortic Valve Trisinus/trileaflet aortic valve. Mild focal aortic valve calcification. Pulmonic Valve Normal pulmonic valve. Great Vessels Mildly dilated aortic root. The pulmonary artery is normal size. Normal inferior vena cava. Pericardium/Pleural No pericardial effusion. Medication 22 gauge I.V. with prn adaptor inserted into right arm. Performed a rapid injection of agitated mix of 9 cc saline and 1cc air to assess for atrial septal defect. MMode/2D Measurements & Calculations LVIDd: 4.3 cm IVSd: 1.1 cm Ao root diam: 3.2 cm LVIDs: 2.5 cm LVPWd: 1.1 cm RVDd: 3.3 cm FS: 42.1 % LAV(MOD-bp): 37.6 ml LVAd ap4: 27.3 cm2 SV(MOD-sp4): 55.6 ml LAV(MOD-bp) Indexed: 18.1 ml/m2 LVLd ap4: 7.1 cm LAV(MOD-sp2): 40.9 ml EDV(MOD-sp4): 85.8 ml LAV(MOD-sp4): 32.6 ml EDV(sp4-el): 89.4 ml LVAs ap4: 15.0 cm2 LVLs ap4: 6.3 cm ESV(MOD-sp4): 30.2 ml ESV(sp4-el): 30.6 ml EF(MOD-sp4): 64.8 % EF(sp4-el): 65.8 % SV(sp4-el): 58.8 ml LA A4 area: 14.6 cm2 LA dimension(2D): 3.9 cm RA A4 area: 11.1 cm2 TAPSE: 2.0 cm Time Measurements MV dec time: 0.33 sec Doppler Measurements & Calculations MV E max jaime: 94.7 cm/sec Lat Peak E' Jaime: 10.0 cm/sec Med Peak E' Jaime: 7.7 cm/sec MV A max jaime: 115.4 cm/sec E/E' lat: 9.5 E/E' med: 12.3 MV E/A: 0.82 Ao V2 max: 147.6 cm/sec LV V1 max: 125.2 cm/sec PA V2 max: 93.3 cm/sec Ao max P.7 mmHg LV V1 max P.3 mmHg TR max jaime: 273.7 cm/sec TR max P.0 mmHg ECHO/Echo Complete Interpretation Summary Normal LV size. Left ventricular systolic function is normal. The estimated ejection fraction is 70 %. Hypermobile atrial septum. Bubble contrast study negative for right to left interatrial shunt. Mild (1+) eccentric mitral valve insufficiency. Stage 1 diastolic dysfunction. Ordering Physician: Mary Kelley Referring Physician: Mary Kelley Performed By: Julianna Gibbs RDCS
== END | disposition home or self-care (01) ==
LOC: CVS 12:40
PROVIDERS: PCP Family Medicine; Referring Provider Family Medicine; Visit Provider Family Medicine
DX: R01.1 Cardiac murmur, unspecified (principal)
CPT/HCPCS: 93306; A4216

== ENCOUNTER → 2024-04-03 | Outpatient (CLI) | payer MEDICARE, SELFPAY ==
[2024-04-03 12:35] LABS: Vitamin D,25 Hydroxy 65.1 ng/mL
[2024-04-03 12:38] LABS: ALB/GLOB Ratio 1.1 RATIO (0.9-2.4); AST(SGOT) 16 U/L (15-37); Alanine Aminotransfer ALT/SGPT 20 U/L (13-56); Albumin, Serum 3.6 g/dL (3.2-5.0); Alkaline Phosphatase 38 U/L (45-117); Anion Gap 9 (5-15); BUN 19 mg/dL (7-18); BUN/Creat Ratio 25.9 RATIO (10-20); Calcium,Total 8.6 mg/dL (8.5-10.1); Chloride 103 mmol/L (98-107); Creatinine, Serum 0.74 mg/dL (0.55-1.02); EST Glomerular Filtration Rate 82 mL/min (>60); Est Glom Filt Rate - Afr Amer 100 mL/min (>60); Globulin 3.3 g/dL (2.2-4.2); Glucose 113 mg/dL (74-106); Magnesium 2.3 mg/dL (1.6-2.6); Potassium 4.5 mmol/L (3.5-5.1); Protein, Total 6.9 g/dL (6.4-8.2); Sodium Level 139 mmol/L (136-145); Thyroid Stim Hormone (TSH) 3.84 uIU/mL (0.358-3.74)
== END | disposition home or self-care (01) ==
LOC: LAB 11:21
PROVIDERS: PCP Family Medicine; Referring Provider Internal Medicine Endocrinology, Diabetes & Metabolism; Visit Provider Internal Medicine Endocrinology, Diabetes & Metabolism
DX: E89.0 Postprocedural hypothyroidism (principal); E55.9 Vitamin D deficiency, unspecified; M85.89 Other specified disorders of bone density and structure, multiple sites
CPT/HCPCS: 36415; 80053; 82306; 83735; 83970; 84443

== ENCOUNTER → 2024-05-23 | Outpatient (CLI) | payer MEDICARE, SELFPAY ==
[2024-05-23 11:35] LABS: AST(SGOT) 16 U/L (15-37); Alanine Aminotransfer ALT/SGPT 16 U/L (13-56); Albumin, Serum 3.3 g/dL (3.2-5.0); Alkaline Phosphatase 41 U/L (45-117); Anion Gap 4 (5-15); BUN 18 mg/dL (7-18); BUN/Creat Ratio 24.8 RATIO (10-20); Calcium,Total 8.2 mg/dL (8.5-10.1); Chloride 106 mmol/L (98-107); Creatinine, Serum 0.72 mg/dL (0.55-1.02); EST Glomerular Filtration Rate 84 mL/min (>60); Est Glom Filt Rate - Afr Amer 101 mL/min (>60); Globulin 3.4 g/dL (2.2-4.2); Glucose 83 mg/dL (74-106); Potassium 4.3 mmol/L (3.5-5.1); Protein, Total 6.7 g/dL (6.4-8.2); Sodium Level 139 mmol/L (136-145); Thyroid Stim Hormone (TSH) 3.71 uIU/mL (0.358-3.74)
== END | disposition home or self-care (01) ==
LOC: LAB 10:29
PROVIDERS: PCP Family Medicine; Referring Provider Internal Medicine Endocrinology, Diabetes & Metabolism; Visit Provider Internal Medicine Endocrinology, Diabetes & Metabolism
DX: E89.0 Postprocedural hypothyroidism (principal)
CPT/HCPCS: 36415; 80053; 84443

== ENCOUNTER 2024-07-28 11:42 | Day surgery (SDC) | payer MEDICARE, SELFPAY ==
[2024-07-28] VITALS (8 sets, daily range): BP systolic 117–131; BP diastolic 63–72; PULSE 57–86; RESP 16–18; TEMP 36.1–37.2; O2SAT 95–98; BMI 38.2
--- NOTE | 2024-07-28 12:45 | COLBX_PTH ---
PATIENT: CUAUHTEMOC ARRINGTON LOC: EN U#:[id number] AGE/SX: 73/F ROOM: RE07/28/[address]: Dr. Stu Jara DO : 1950 BED: DIS: 07/28/2024 SPEC #: [id number] RECD: 07/28/24 18:06 STATUS: TORIBIO RELenard #: [id number] DAVID: 07/28/24 12:[address]: Stu Jara DEPT: SURGICAL PATHOLOGY RECD BY: Laurie Rivas ENTERED: 07/29/24 13:09 SP TYPE: COLON BX OTHR DR: Tri Singh MD Tissues: A - Gastric mucous membrane B - Esophagus, NOS Procedures: Special Stain Group I Surgery Specimen Level IV Alcian Blue/PAS (control) HEADER OPERATION: Colonoscopy, EGD biopsy, dilatation PRE-OP DIAGNOSIS: GERD, diverticulosis TISSUE SUBMITTED: A- Gastric ulcer biopsy, B- Distal esophagus biopsy MICROSCOPIC DIAGNOSIS A. Gastric ulcer, biopsy: Ulceration with acute and chronic inflammation. See comment. B. Distal esophagus, biopsy: Gastroesophageal junction mucosa with mild chronic inflammation. Focal changes of reflux. No evidence of goblet cell metaplasia. See comment. 07/30/2024 COMMENT A. The results of immunohistochemistry for Helicobacter pylori will be reported separately ([id number]). B. Alcian blue/PAS stain with matched control is used in the evaluation of the specimen. MICROSCOPIC DESCRIPTION Slides are reviewed. GROSS DESCRIPTION A. Received in fixative is one container labeled with the patient's name and designated Gastric ulcer biopsy. The specimen consists of multiple irregular fragments of light morgan soft tissue mixed with blood clots that in aggregate measure 0.9 x 0.4 x 0.1 cm. The specimen is totally submitted in one cassette. B. Received in fixative is one container labeled with the patient's name and designated Distal esophagus biopsy. The specimen consists of multiple irregular fragments of light morgan soft tissue that in aggregate measure 1.5 x 0.5 x 0.1 cm. The specimen is totally submitted in one cassette. SJ.mr 07/29/2024 TC:3 CPT:35016u5,39626
--- NOTE | 2024-07-28 12:45 | IMM_PTH ---
PATIENT: CUAUHTEMOC ARRINGTON LOC: EN U#:[id number] AGE/SX: 73/F ROOM: RE07/28/[address]: Dr. Stu Jara DO : 1950 BED: DIS: 07/28/2024 SPEC #: [id number] RECD: 07/29/24 10:24 STATUS: TORIBIO REQ #: [id number] DAVID: 07/28/24 12:[address]: Stu Jara DEPT: IMMUNOHISTOCHEMISTRY RECD BY: Chris Mcconnell ENTERED: 07/29/24 10:24 SP TYPE: IMMUNO OTHR DR: Tri Singh MD Tissues: A - Gastric mucous membrane Procedures: H Pylori (initial) PHYSICIAN & INSTITUTION [place] [id number] SPECIMEN INFORMATION: Tissue Source: A- Gastric ulcer biopsy Clinical Info: GERD, diverticulosis Specimen Number: [id number] CPT code: 20641 METHODOLOGY: Deparaffinized sections of prefer/formalin-fixed tissue or PAP/DQ stained slides are incubated with monoclonal/polyclonal antibodies/oligonucleotide probes. Localization is made via biotin free immunoperoxidase method. Appropriate controls are performed and reacted as expected. Results on target cell population are indicated in the following table: RESULTS: ANTIBODY / CLONE RESULT Block A H Pylori (polyclonal) negative These tests were developed and their performance characteristics determined by [facility]. They may not have been cleared or approved by the U.S. Food and Drug Administration. The FDA has determined that such clearance or approval is not necessary. The above immunohistochemical/dualISH markers are ordered and reviewed by the Pathologist. INTERPRETATION: A. Gastric ulcer, biopsy: Negative for Helicobacter pylori organisms. 07/30/2024
--- NOTE | 2024-07-28 12:47 | PRE.ANES_ITS ---
ASA Classification* ASA Classification ASA Classification: 2 Assessment & Plan Anesthesia* Anesthesia Assessment Anesthesia Assessment: Discussed sedation and/or anesthesia options, risks, benefits, and alternatives with patient/parents/legal guardian/POA. Questions invited. The patient/parents/legal guardian/POA seems to understand and agrees to proceed with anesthesia plan. Reviewed the physical assessment, medical history, allergy history and patient home medications list prior to surgery/procedure/anesthetic and documented any changes. Performed airway and anesthesia risk assessments. Anesthesia Type Anesthesia Type: MAC History Source History Obtained from:: Patient and Chart Anesthesia Focused Assessment* Temperature: 99.0 F Pulse Rate: 86 Blood Pressure: 131/63 Respiratory Rate: 18 Pulse Ox: 98 Oxygen Delivery Method: Room Air Airway Assessment Mouth opens: >3 cm Mallampati Score: I Teeth Condition: Partial (Upper partial is out.) Neck Range of motion (ROM): Limited ROM Focused Labs Anesthesia Preop lab: CBC WBC 7.2 K/mm3 (4.4-11.0) 10/30/23 09:28 RBC 3.93 M/mm3 (4.2-5.4) L 10/30/23 09:28 Hgb 12.9 g/dL (12.0-15.0) 10/30/23 09:28 Hct 38.6 % (37-47) 10/30/23 09:28 Plt Count 232 K/mm3 (150-450) 10/30/23 09:28 CHEMISTRY Potassium 4.3 mmol/L (3.5-5.1) 05/23/24 10:32 Sodium 139 mmol/L (136-145) 05/23/24 10:32 Magnesium 2.3 mg/dL (1.6-2.6) 04/03/24 11:39 BUN 18 mg/dL (7-18) 05/23/24 10:32 Creatinine 0.72 mg/dL (0.55-1.02) 05/23/24 10:32 Glucose 83 mg/dL (74-106) 05/23/24 10:32 TSH 3.71 uIU/mL (0.358-3.74) 05/23/24 10:32 COAG Pre-Assessment Diagnosis/Proposed Procedure Planned Operative Procedure(s): COLONOSCOPY,EGD Anesthesia History Anesthesia History - manager housekeeping: Anesthesia History - manager housekeeping Hx Hospitalization Yes: THYROIDECTOMY 07/27/24 11:07 Any Problems With Anesthesia Yes: FEELING LIKE COULDN'T 07/27/24 11:07 BREATHE AT ALL Cholinesterase deficiency No 07/27/24 11:07 You/Your Family Experience No 07/27/24 11:07 fever (hyperthermia) with Relationship Recent Exposure to Contagious No 07/28/24 12:17 Disease Does patient have nerve No 07/27/24 11:07 stimulator Patient instructed to have device shut off --Does patient have Pacemaker No 07/28/24 12:17 or ICD? When Was Last Pacemaker Check QUESTION #4 FULL TEXT: You/Your Family Experience fever (hyperthermia) with Anesthesia Last Oral Intake Last Oral intake: Last Oral Intake NPO since 07:00 07/28/24 12:17 Meds taken in AM with sips of water? Meds patient instructed to take am of surgery Any additional information?: Yes NPO since: 08:00 (Patient finished prep at 8 AM) PONV PONV - manager housekeeping: PONV - manager housekeeping Female Yes 07/27/24 11:07 HX of Motion Sickness No 07/27/24 11:07 HX of N/V After Surgery No 07/27/24 11:07 Non-Smoker Yes 07/27/24 11:07 Duration of Surgery greater No 07/27/24 11:07 than 60 minutes Number of Risk Factors 2 07/27/24 11:07 PONV Score Moderate Risk 07/27/24 11:07 Height & Weight Height & Weight: Anesthesia: Height & Weight Height 5 ft 4 in 07/28/24 12:17 Weight: 101 kg 07/28/24 12:17 Body Mass Index (BMI) 38.2 07/28/24 12:17 Respiratory Assessment Respiratory Assessment - manager housekeeping: Respiratory Tract Infection Hx - manager housekeeping Hx Respiratory Tract Infection No 07/27/24 11:07 STOP Sleep Apnea STOP Sleep Apnea - manager housekeeping: STOP Sleep Apnea - manager housekeeping Hx Hypertension Yes: CONTROLLED ON MED 07/27/24 11:07 Hx Sleep Apnea No 07/27/24 11:07 CPAP BIPAP Do you snore loudly (louder No 07/27/24 11:07 than talking or can be heard Do you often feel tired/ No 07/27/24 11:07 fatigued/ sleepy during daytime? Has anyone observed you stop No 07/27/24 11:07 breathing during sleep? STOP Results Negative 07/27/24 11:07 QUESTION #5 FULL TEXT : Do you snore loudly (louder than talking or can be heard through closed doors)? Tobacco Use History Tobacco Use History - manager housekeeping: Tobacco Use History - manager housekeeping Tobacco Use Smoking Status Never smoker 07/27/24 11:07 Hx Tobacco Use No 07/27/24 11:07 Years Smoking Packs Smoked per Day Smoking Cessation Date was within the last 15 years Hx Smoking Cessation Date Hx Smoking Cessation Counseling Hematologic Medial History Hematologic Hx - manager housekeeping: Hematologic Medical Hx - knocker out Hx of Blood Transfusion No 07/27/24 11:07 Hx of Transfusion in last 3 No 07/27/24 11:07 Months Date of Last Transfusion (if within last 3 months) Ever experience any problems No 07/27/24 11:07 with transfusion(s)? Specify any problems Hx of Preganancy in last 3 No 07/27/24 11:07 Months Nurse Filling Out Transfusion VCHRISTIN 07/27/24 11:07 & Questions: Date: 07/27/24 07/27/24 11:07 Time: 11:09 07/27/24 11:07 Patient unable to answer at this time (ie. confused, unrespo /Reproduction History /Reproductive History - manager housekeeping: /Reproductive Hx- manager housekeeping Hx Now Gestational Age (in weeks): EDC: Hx Hx Para [facility] History Wears hearing aid Wears dentures Wears glasses Post-menopausal Thyroid disease Difficulty swallowing History of diverticulitis Gastric reflux Shortness of breath on exertion History of echocardiogram History of stress test Left ankle sprain Strain of left foot Left foot pain Acute pharyngitis, unspecified Acute sinusitis, unspecified Incontinence Knee pain Shoulder pain Back pain Diabetes Arthritis HTN (hypertension) Home Medications ?Medication ?Instructions ?Recorded ?Last Taken ?Type amiloride 5 mg tablet 10 mg PO DAILY DIURETIC 01/10/14 Unknown History metoprolol succinate 100 mg 100 mg PO DAILY 01/10/14 07/28/24 History tablet,extended release 24 hr L.acidoph, paracasei,B. lactis 10 1 ea PO DAILY 04/19/16 07/27/24 History billion cell capsule vitamin E (dl, acetate) 180 mg 400 units PO DAILY 05/21/16 07/27/24 History (400 unit) capsule acetaminophen 500 mg tablet 500 mg PO Q6H PRN pain 07/08/24 Unknown History (Tylenol Extra Strength) aspirin 81 mg tablet,delayed 81 mg PO QDAY 07/08/24 07/28/24 History release (Adult Low Dose Aspirin) garlic 1,000 mg capsule 1,000 mg PO QDAY 07/08/24 07/27/24 History levothyroxine 125 mcg tablet 125 mcg PO DAILY 07/27/24 07/28/24 History Calcium CITRATE 2 tab PO 1XD 07/28/24 07/27/24 History Vitamin D3 10,000 unit PO 1XD 07/28/24 07/27/24 History Allergy/AdvReac Type Severity Reaction Status Date / Time levofloxacin Allergy Severe Other Verified 07/28/24 12:07 pantoprazole Allergy Severe Diarrhea Verified 07/28/24 12:07 fluticasone (From Flonase) Allergy Mild UNKNOWN Verified 07/28/24 12:07 hydrochlorothiazide Allergy Mild UNKNOWN Verified 07/28/24 12:07 salicylates Allergy Mild UNKNOW Verified 07/28/24 12:07 Corticosteroids Allergy NEEDS Verified 07/28/24 12:07 (Glucocorticoids) FOLLOW-UP codeine AdvReac Vomiting Verified 07/28/24 12:07 dexamethasone AdvReac All blood Verified 07/28/24 12:07 cells low erythromycin base AdvReac Unknown Verified 07/28/24 12:07 (Erythromycin Base) fluticasone propionate (From AdvReac Unknown Verified 07/28/24 12:07 Flonase) lisinopril (From Zestril) AdvReac Unknown Verified 07/28/24 12:07 Penicillins AdvReac Unknown Verified 07/28/24 12:07 rofecoxib (From Vioxx) AdvReac Unknown Verified 07/28/24 12:07 terbinafine HCl (From AdvReac Unknown Verified 07/28/24 12:07 Lamisil) tetracycline (Tetracycline) AdvReac Unknown Verified 07/28/24 12:07 Surgical History Hx of total thyroidectomy History of esophagogastroduodenoscopy (EGD) Hx of melanoma excision Hx of cataract surgery History of knee replacement Deviated nasal septum Carpal tunnel syndrome H/O tubal ligation History of tonsillectomy Social History Smoking Status: Never smoker alcohol intake: never Review of Systems (Anesthesia) ROS Narrative System reviewed and no additional complaints, except as documented.
--- NOTE | 2024-07-28 12:48 | HP.PCM_ITS ---
History and Physical Date of Admission: 07/28/24 Chief Complaint: diverticulosis, dysphagia Details: CUAUHTEMOC ARRINGTON, is a 73 F who presents to the office today for establishment with [facility]. Patient has a hx of diverticulosis with flares of diverticulitis and esophageal narrowing with dilation. She was seeing Dr. Wilson but had a falling out so she is establishing her care here. She would like to get a colonoscopy as her last one was 11-12 years ago showing diverticula. She has had four flares of diverticulitis which was treated with antibiotics. Since taking CBD oil she has not had a flare. She does however feel her diverticula is worsening as she is having increased poop balls. Her last EGD was about [address] Juan patel and he dilated her esophagus. He wanted her to take a PPI but she did not like how it made her feel. She is now having some difficulty swallowing and food getting stuck on occasion. SHe feels it may need dilated again. ROS Const Constitutional: No fatigue, fever(s) or weight change ENT ENT: No difficulty swallowing Gastro GI: Positive for change in bowel habits and constipation; No abdominal pain, belching, bloating, change in stool character, coffee ground emesis, cramping, diarrhea, heartburn, difficulty swallowing, feeling full early, excessive flatus, incontinent of stools, Vomiting blood/hematemesis, Blood in stool, loose stools, Black,tarry stools, nausea/dyspepsia, pain with swallowing, vomiting or other Musc Musculoskeletal: Positive for abnormal gait, numbness, tingling and Arthritis; No joint pain Skin Skin: No yellowing of the eye or itchy eyes Neuro Neurology: Positive for abnormal gait, numbness and tingling Psych Psychiatric: No anxiety and No depression Endo Endocrine: No fatigue or weight change Aller/Imm Allergy/Immunologic: No itchy eyes Mack/Lymp Hematologic/Lymphatic: No easy bleeding or easy bruising Exam Const General: cooperative and comfortable Nutritional Appearance: average body habitus and well nourished [facility] Head: normal to inspection Ears: hearing grossly normal bilaterally Nose: external nose normal Face and sinus: normal facial exam Eyes General: appearance normal, both eyes and all related structures Neck Neck: normal visual inspection Chest Chest palpation & inspection: normal inspection of the chest Resp Effort & Inspection: normal respiratory effort GI Inspection: normal to inspection Skin General: no rashes or lesions noted Neuro General: patient alert Extrem General: normal to inspection Psych Affect: normal affect Assessment and Plan Assessment and Plan (1) GERD (gastroesophageal reflux disease): Status: Acute Plan: Patient is 73 yo female with PMHx of GERD, diverticulosis and s/p thyroidectomy. She is seeing us today for establishment. She feels her diverticulosis is getting worse with increased hard stools. Her last colonoscopy was over 10 years ago and she would like to have another at this time. I recommended it as well. She has no symptoms of acute diverticulitis. I recommended she start a fiber supplement to add bulk to her stool as well as make it easy to pass. She is agreeable to taking a natural fiber like psyllium. She also has a hx of esophageal dilation about 1 year. She feels food is again getting stuck in her esophagus. We will do EGD with possible dilation and colonoscopy. She refuses to take PPIs or famotidine due to side effects; she does however take baking soda for symptom of reflux. -Colonoscopy and EGD with possible dilation -Start fiber supplement -f/u in 3 months (2) Diverticulosis: Status: Acute I have examined the patient and the H&P has been reviewed. There are no clinical changes since date of exam.
--- NOTE | 2024-07-28 13:46 | PCM.POST.ANE ---
Anesthesia: Postop Eval I Current Vital Signs Temperature: 97 F Pulse Rate: 64 Blood Pressure: 117/72 Respiratory Rate: 16 Pulse Ox: 98 Oxygen Delivery Method: Room Air Assessment Airway patent: Yes Spontaneous unlabored respirations: Yes Mental status: Awake and Calm nausea: No Vomiting: No Anesthesia Complication: No Fluid Hydration Crystalloid volume administer (ml): 20 Total IV fluid infused: 20 Progress Note Anesthesia document: Postop Eval 1 completed: Yes
--- NOTE | 2024-07-28 13:49 | OP.CCLET_ITS ---
07/28/2024 Tri Singh Md Re : Upper GI endoscopy procedure for Erinn Allen Dear [place] This procedure was performed on Sunday, July 28, 2024. My impressions and recommendations are as follows: Impressions : - Esophageal mucosal changes suggestive of eosinophilic esophagitis. - Severe Schatzki ring. Dilated. - Hiatal hernia. - Non-bleeding gastric ulcer with pigmented material. Biopsied. - No gross lesions in the first portion of the duodenum. Recommendations : - Discharge patient to home. - Resume previous diet. - Continue present medications. - Await pathology results. -Pantoprazole 40 mg p.o. twice daily My findings are described in the full procedure note, which is enclosed. If I can be of further assistance, please feel free to contact me at . Sincerely, Stu Jara, 07/28/2024 1:49:00 PM This report has been signed electronically.
--- NOTE | 2024-07-28 13:49 | OP.EGD_ITS ---
Patient Name: Erinn Allen Procedure Date: 07/28/2024 12:47 PM Date of : 1950 Age: 73 Procedure: Upper GI endoscopy Indications: Dysphagia Providers: Stu Jara DO Medicines: Monitored Anesthesia Care Complications: No immediate complications. Estimated blood loss: None. Procedure: Pre-Anesthesia Assessment: - Prior to the procedure, a History and Physical was performed, and patient medications and allergies were reviewed. The patient is competent. The risks and benefits of the procedure and the sedation options and risks were discussed with the patient. All questions were answered and informed consent was obtained. Patient identification and proposed procedure were verified by the physician in the pre-procedure area. Mental Status Examination: alert and oriented. Airway Examination: normal oropharyngeal airway and neck mobility. Respiratory Examination: clear to auscultation. CV Examination: normal. Prophylactic Antibiotics: The patient does not require prophylactic antibiotics. Prior Anticoagulants: The patient has taken no anticoagulant or antiplatelet agents except for NSAID medication. ASA Grade Assessment: II - A patient with mild systemic disease. After reviewing the risks and benefits, the patient was deemed in satisfactory condition to undergo the procedure. The anesthesia plan was to use monitored anesthesia care (MAC). Immediately prior to administration of medications, the patient was re-assessed for adequacy to receive sedatives. The heart rate, respiratory rate, oxygen saturations, blood pressure, adequacy of pulmonary ventilation, and response to care were monitored throughout the procedure. The physical status of the patient was re-assessed after the procedure. After obtaining informed consent, the endoscope was passed under direct vision. Throughout the procedure, the patient's blood pressure, pulse, and oxygen saturations were monitored continuously. The Colonoscope was introduced through the mouth, and advanced to the second part of duodenum. The upper GI endoscopy was accomplished without difficulty. The patient tolerated the procedure well. Scope In: 1:07:24 PM Scope Out: 1:16:51 PM Total Procedure Duration Time 0 hours 9 minutes 27 seconds Findings: Mucosal changes including ringed esophagus were found in the upper third of the esophagus, in the middle third of the esophagus and in the lower third of the esophagus. A severe Schatzki ring was found at the gastroesophageal junction. A guidewire was placed and the scope was withdrawn. Dilation was performed with a Savary dilator with no resistance at 54 Fr. The dilation site was examined and showed moderate mucosal disruption. A hiatal hernia was present. One non-bleeding cratered gastric ulcer with pigmented material was found in the gastric antrum. The lesion was 10 mm in largest dimension. Biopsies were taken with a cold forceps for histology. Verification of patient identification for the specimen was done. Estimated blood loss was minimal. No gross lesions were noted in the first portion of the duodenum. Impression: - Esophageal mucosal changes suggestive of eosinophilic esophagitis. - Severe Schatzki ring. Dilated. - Hiatal hernia. - Non-bleeding gastric ulcer with pigmented material. Biopsied. - No gross lesions in the first portion of the duodenum. Recommendation: - Discharge patient to home. - Resume previous diet. - Continue present medications. - Await pathology results. -Pantoprazole 40 mg p.o. twice daily Procedure Code(s): --- Professional --- 76208, Esophagogastroduodenoscopy, flexible, transoral; with insertion of guide wire followed by passage of dilator(s) through esophagus over guide wire 79086, 59,51, Esophagogastroduodenoscopy, flexible, transoral; with biopsy, single or multiple CPT copyright 2021 [employer]. All rights reserved. The codes documented in this report are preliminary and upon copy holder review may be revised to meet current compliance requirements. Stu Jara DO 07/28/2024 1:49:00 PM This report has been signed electronically. Number of Addenda: 0 Note Initiated On: 07/28/2024 12:47 PM
--- NOTE | 2024-07-28 13:52 | OP.COLON_ITS ---
Patient Name: Erinn Allen Procedure Date: 07/28/2024 1:17 PM Date of : 1950 Age: 73 Procedure: Colonoscopy Indications: Screening for colorectal malignant neoplasm Providers: Stu Jara DO Medicines: Monitored Anesthesia Care Patient Profile: This is a 73 year old female. Refer to note in patient chart for documentation of history and physical. Last Colonoscopy: more than 10 years ago. Complications: No immediate complications. Procedure: Pre-Anesthesia Assessment: - Prior to the procedure, a History and Physical was performed, and patient medications and allergies were reviewed. The patient is competent. The risks and benefits of the procedure and the sedation options and risks were discussed with the patient. All questions were answered and informed consent was obtained. Patient identification and proposed procedure were verified by the physician in the pre-procedure area. Mental Status Examination: alert and oriented. Airway Examination: normal oropharyngeal airway and neck mobility. Respiratory Examination: clear to auscultation. CV Examination: normal. Prophylactic Antibiotics: The patient does not require prophylactic antibiotics. Prior Anticoagulants: The patient has taken no anticoagulant or antiplatelet agents except for NSAID medication. ASA Grade Assessment: II - A patient with mild systemic disease. After reviewing the risks and benefits, the patient was deemed in satisfactory condition to undergo the procedure. The anesthesia plan was to use monitored anesthesia care (MAC). Immediately prior to administration of medications, the patient was re-assessed for adequacy to receive sedatives. The heart rate, respiratory rate, oxygen saturations, blood pressure, adequacy of pulmonary ventilation, and response to care were monitored throughout the procedure. The physical status of the patient was re-assessed after the procedure. After I obtained informed consent, the scope was passed under direct vision. Throughout the procedure, the patient's blood pressure, pulse, and oxygen saturations were monitored continuously. The Colonoscope was introduced through the anus and advanced to the cecum, identified by appendiceal orifice and ileocecal valve. The colonoscopy was performed without difficulty. The patient tolerated the procedure well. The quality of the bowel preparation was adequate. The ileocecal valve, appendiceal orifice, and rectum were photographed. Scope In: 1:19:21 PM Scope Withdrawal Time 0 hours 7 minutes 41 seconds Scope Out: 1:38:54 PM Total Procedure Duration Time 0 hours 19 minutes 33 seconds Findings: The perianal and digital rectal examinations were normal. Multiple small and large-mouthed diverticula were found in the recto-sigmoid colon, sigmoid colon and descending colon. The exam was otherwise normal throughout the examined colon. Impression: - Diverticulosis in the recto-sigmoid colon, in the sigmoid colon and in the descending colon. - No specimens collected. Recommendation: - Discharge patient to home. - Resume previous diet. - Continue present medications. - Await pathology results. - Repeat colonoscopy in 10 years for screening purposes. Procedure Code(s): --- Professional --- G0121, Colorectal cancer screening; colonoscopy on individual not meeting criteria for high risk CPT copyright 2021 [employer]. All rights reserved. The codes documented in this report are preliminary and upon certified procedural coder review may be revised to meet current compliance requirements. Stu Jara DO 07/28/2024 1:52:22 PM This report has been signed electronically. Number of Addenda: 0 Note Initiated On: 07/28/2024 1:17 PM
--- NOTE | 2024-07-28 13:53 | OP.CCLET_ITS ---
07/28/2024 Tri Singh Md Re : Colonoscopy procedure for Erinn Allen Dear [place] This procedure was performed on Sunday, July 28, 2024. My impressions and recommendations are as follows: Impressions : - Diverticulosis in the recto-sigmoid colon, in the sigmoid colon and in the descending colon. - No specimens collected. Recommendations : - Discharge patient to home. - Resume previous diet. - Continue present medications. - Await pathology results. - Repeat colonoscopy in 10 years for screening purposes. My findings are described in the full procedure note, which is enclosed. If I can be of further assistance, please feel free to contact me at . Sincerely, Stu Jara, 07/28/2024 1:52:22 PM This report has been signed electronically.
--- NOTE | 2024-07-28 14:38 | POSTOPAN2_ITS ---
Anesthesia Postop Eval I Sum Postop Eval Completion status Anesthesia document: Postop Eval 1 completed: Yes Anesthesia Postop Eval I Summary Anesthesia Postop Eval I Summary: Anesthesia Postop Eval I: Assessment Summary Airway patent Yes 07/28/24 13:46 GROCERY STORE CLERK.[email or web address] Spontaneous unlabored Yes 07/28/24 13:46 GROCERY STORE CLERK.[email or web address] respirations Mental status Awake,Calm 07/28/24 13:46 GROCERY STORE CLERK.[email or web address] nausea No 07/28/24 13:46 GROCERY STORE CLERK.NEISHA Vomiting No 07/28/24 13:46 GROCERY STORE CLERK.NEISHA Anesthesia Postop Eval I: Fluid Summary Crystalloid volume administer 20 07/28/24 13:46 GROCERY STORE CLERK.NEISHA (ml) Colloids volume administered ( ml) Blood Product volume administered (ml) Total IV fluid infused 20 07/28/24 13:46 GROCERY STORE CLERK.NEISHA Anesthesia Postop Eval I: Summary Notes Anesthesia Complication No 07/28/24 13:46 GROCERY STORE CLERKPAOLA Anesthesia Complication Comment: Post-operative progress note Anesthesia: Postop Eval II Evaluation Mental status: Awake Pain Level: 0 nausea: No Vomiting: No
--- NOTE | 2024-07-28 14:38 | PCM.POSTANE2 ---
Anesthesia Postop Eval I Sum Postop Eval Completion status Anesthesia document: Postop Eval 1 completed: Yes Anesthesia Postop Eval I Summary Anesthesia Postop Eval I Summary: Anesthesia Postop Eval I: Assessment Summary Airway patent Yes 07/28/24 13:46 ACCOUNTS RECEIVABLE ADMINISTRATOR.SILVIAOBBella Spontaneous unlabored Yes 07/28/24 13:46 ACCOUNTS RECEIVABLE ADMINISTRATOR.NEISHA respirations Mental status Awake,Calm 07/28/24 13:46 ACCOUNTS RECEIVABLE ADMINISTRATOR.NEISHA nausea No 07/28/24 13:46 ACCOUNTS RECEIVABLE ADMINISTRATOR.NEISHA Vomiting No 07/28/24 13:46 ACCOUNTS RECEIVABLE ADMINISTRATOR.NEISHA Anesthesia Postop Eval I: Fluid Summary Crystalloid volume administer 20 07/28/24 13:46 ACCOUNTS RECEIVABLE ADMINISTRATOR.NEISHA (ml) Colloids volume administered ( ml) Blood Product volume administered (ml) Total IV fluid infused 20 07/28/24 13:46 ACCOUNTS RECEIVABLE ADMINISTRATOR.NEISHA Anesthesia Postop Eval I: Summary Notes Anesthesia Complication No 07/28/24 13:46 ACCOUNTS RECEIVABLE ADMINISTRATORPAOLA Anesthesia Complication Comment: Post-operative progress note Anesthesia: Postop Eval II Evaluation Mental status: Awake Pain Level: 0 nausea: No Vomiting: No
== END 2024-07-28 14:42 | disposition home or self-care (01) ==
LOC: EN 11:44 → AC 11:46
PROVIDERS: PCP Family Medicine; Referring Provider Internal Medicine Gastroenterology; Visit Provider Internal Medicine Gastroenterology
PROC: 0DJD8ZZ Inspection of Lower Intestinal Tract, Via Natural or Artificial Opening Endoscopic (ICD-10-PCS; CPT 45378; principal; 2024-07-28 12:40)
DX: Z12.11 Encounter for screening for malignant neoplasm of colon (principal); E11.9 Type 2 diabetes mellitus without complications; K22.2 Esophageal obstruction; K25.9 Gastric ulcer, unspecified as acute or chronic, without hemorrhage or perforation; K57.30 Diverticulosis of large intestine without perforation or abscess without bleeding; K21.00 Gastro-esophageal reflux disease with esophagitis, without bleeding; K44.9 Diaphragmatic hernia without obstruction or gangrene; Z79.82 Long term (current) use of aspirin; Z79.899 Other long term (current) drug therapy; Z79.890 Hormone replacement therapy; I10 Essential (primary) hypertension; E89.0 Postprocedural hypothyroidism
CPT/HCPCS: G0121; 43248; 43239; 88305; 88312; 88342; C1769; J3490

== ENCOUNTER → 2024-08-11 | Outpatient (CLI) | payer MEDICARE, SELFPAY ==
[2024-08-11 13:11] LABS: ALB/GLOB Ratio 1.1 RATIO (0.9-2.4); AST(SGOT) 13 U/L (15-37); Alanine Aminotransfer ALT/SGPT 20 U/L (13-56); Albumin, Serum 3.5 g/dL (3.2-5.0); Alkaline Phosphatase 43 U/L (45-117); Anion Gap 6 (5-15); BUN 22 mg/dL (7-18); BUN/Creat Ratio 30.5 RATIO (10-20); Calcium,Total 8.7 mg/dL (8.5-10.1); Chloride 103 mmol/L (98-107); Creatinine, Serum 0.72 mg/dL (0.55-1.02); EST Glomerular Filtration Rate 84 mL/min (>60); Est Glom Filt Rate - Afr Amer 102 mL/min (>60); Globulin 3.2 g/dL (2.2-4.2); Glucose 101 mg/dL (74-106); Potassium 4.3 mmol/L (3.5-5.1); Protein, Total 6.7 g/dL (6.4-8.2); Sodium Level 138 mmol/L (136-145)
== END | disposition home or self-care (01) ==
LOC: LAB 11:41
PROVIDERS: PCP Family Medicine; Referring Provider Internal Medicine Endocrinology, Diabetes & Metabolism; Visit Provider Internal Medicine Endocrinology, Diabetes & Metabolism
DX: E89.0 Postprocedural hypothyroidism (principal)
CPT/HCPCS: 36415; 80053; 84443

== ENCOUNTER → 2024-09-04 | Outpatient (CLI) | payer MEDICARE, SELFPAY ==
--- NOTE | 2024-09-04 15:17 | RAD_ITS ---
HISTORY: chest pain. TECHNIQUE: XR Chest 2 Views. COMPARISON: 05/27/2018. FINDINGS: CARDIOMEDIASTINAL BORDERS: Cardiac silhouette within normal limits in size. Mediastinal contour unremarkable. LUNGS: Chronic elevation of the right hemidiaphragm with mild right basilar atelectasis or scarring. PLEURA: No pleural effusion or pneumothorax seen. OTHER: Degenerative changes of the osseous structures. Right axillary surgical clips. Surgical clips at the thoracic inlet. RAD/Chest PA and Lateral IMPRESSION: No acute cardiopulmonary process identified. Electronically Signed: Cee Francis MD at 15:34 EST ,
[2024-09-04 17:34] LABS: Absolute Lymphocyte Count 5.59 X10^3/uL (0.83-4.51); Absolute Neutrophil Count 2.5 X10^3/uL (2.0-7.7); Basophil# 0.08 X10^3/uL; Basophil% 0.9 % (0-1); Eosinophil# 0.16 X10^3/uL; Eosinophils% 1.8 % (0-5); Hemoglobin 13.2 g/dL (12.0-15.0); Lymphocyte # 5.59 X10^3/ul (0.83-4.51); Lymphocyte % 61.4 % (19-41); Mean Corpuscular Hgb 31.9 pg (27.0-32.0); Mean Corpuscular Volume 96.6 fL (81-99); Mean Platelet Vol. 12.5 fl (6.2-12.0); Monocyte# 0.72 X10^3/uL; Monocyte% 7.9 % (0-10); NRBC Flagged by Analyzer 0 % (0-5); Neutrophil # 2.54 X10^3/uL (2.7-7.7); Neutrophil % 27.9 % (47-70); POSITIVE DIFFERENTIAL YES; POSITIVE MORPHOLOGY YES; Platelet Count 237 K/mm3 (150-450); RBC Distribution Width CV 12.9 % (11.6-14.6); RBC Distribution Width SD 45.6 fl (35.1-43.9); Red Blood Count 4.14 M/mm3 (4.2-5.4); White Blood Count 9.1 K/mm3 (4.4-11.0)
[2024-09-04 17:47] LABS: Vitamin D,25 Hydroxy 80.1 ng/mL
[2024-09-04 17:53] LABS: ALB/GLOB Ratio 1.3 RATIO (0.9-2.4); AST(SGOT) 15 U/L (15-37); Alanine Aminotransfer ALT/SGPT 24 U/L (13-56); Albumin, Serum 3.9 g/dL (3.2-5.0); Alkaline Phosphatase 38 U/L (45-117); Anion Gap 6 (5-15); BUN 17 mg/dL (7-18); BUN/Creat Ratio 22.4 RATIO (10-20); Calcium,Total 8.6 mg/dL (8.5-10.1); Chloride 104 mmol/L (98-107); Creatinine, Serum 0.76 mg/dL (0.55-1.02); EST Glomerular Filtration Rate 79 mL/min (>60); Est Glom Filt Rate - Afr Amer 96 mL/min (>60); Glucose 97 mg/dL (74-106); Potassium 4.2 mmol/L (3.5-5.1); Protein, Total 6.9 g/dL (6.4-8.2); Sodium Level 137 mmol/L (136-145)
[2024-09-04 17:55] LABS: Differential Indicated SCAN CRITERIA MET
[2024-09-04 18:10] LABS: Anisocytosis 1+; Atypical Lymphocyte 2+ %; Macrocytosis 1+; Platelet Estimate ADEQUATE (ADEQ); Platelet Morphology LARGE; Red Cell Morphology N CHROM NORMAL (NORM C&C)
== END | disposition home or self-care (01) ==
PROVIDERS: PCP Family Medicine; Referring Provider Family Medicine; Visit Provider Family Medicine
DX: R07.9 Chest pain, unspecified (principal); E55.9 Vitamin D deficiency, unspecified
CPT/HCPCS: 36415; 71046; 80053; 82306; 84443; 85025

== ENCOUNTER → 2024-09-29 | Outpatient (CLI) | payer MEDICARE, SELFPAY ==
[2024-09-29 16:39] LABS: T4 Free Direct 1.63 ng/dL (0.76-1.46)
== END | disposition home or self-care (01) ==
LOC: LAB 14:53
PROVIDERS: PCP Family Medicine; Referring Provider Internal Medicine Endocrinology, Diabetes & Metabolism; Visit Provider Internal Medicine Endocrinology, Diabetes & Metabolism
DX: E89.0 Postprocedural hypothyroidism (principal)
CPT/HCPCS: 36415; 84439; 84443

== ENCOUNTER → 2024-10-12 | Outpatient (CLI) | payer MEDICARE, SELFPAY ==
--- NOTE | 2024-10-12 12:14 | STRESSREP ---
Stress Test Report Pharmacologic myocardial perfusion stress test. 74-year-old lady with a history of chest pain Resting EKG demonstrates sinus rhythm with a rate of 58 bpm. Resting blood pressure is 130/78 mmHg. 0.4 mg of regadenoson was infused per usual protocol followed by rapid intravenous saline flush injection. Continuous EKG monitoring was performed. The maximum heart rate was 90 bpm which was 61 per of max impacted heart rate the maximum workload was 1 metabolic equivalent. At rest there were no ST or T wave changes noted to suggest ischemia and at peak infusion nonspecific ST changes were noted which did not meet the criteria for ischemia. No clinical angina is noted. The final blood pressure was 118/70 mmHg. Myocardial perfusion protocol. 14.1 mCi of technetium 99m sestamibi was injected at rest. 0.4 mg of regadenoson was infused per usual protocol. At peak infusion 44.2 mCi of technetium 99m sestamibi was injected stress images were obtained stress and rest images were reconstructed and compared in the short axis vertical long and horizontal long axis. Gated images were also obtained. Perfusion SPECT analysis: Review of the stress images demonstrate normal uptake of tracer noted in all areas of the myocardium. The resting images similar demonstrated normal uptake of tracer noted in all areas of the myocardium. No areas of reversibility are noted to suggest ischemia and no previous infarct is noted. Gated SPECT analysis: The gated ejection fraction is 74%. Conclusion: Normal pharmacologic myocardial perfusion stress test. Preserved ejection fraction.
== END | disposition home or self-care (01) ==
LOC: CVS 06:44
PROVIDERS: PCP Family Medicine; Referring Provider Internal Medicine Cardiovascular Disease; Visit Provider Internal Medicine Cardiovascular Disease
DX: R07.9 Chest pain, unspecified (principal)
CPT/HCPCS: 78452; 93017; A9500; A4216

== ENCOUNTER 2024-11-25 06:39 | Day surgery (SDC) | payer MEDICARE, SELFPAY ==
--- NOTE | 2024-11-24 14:10 | PAT.ANESEVAL ---
Pre-Assessment Diagnosis/Proposed Procedure Planned Operative Procedure(s): EGD Anesthesia History Anesthesia History - medical customer service representative: Anesthesia History - medical customer service representative Hx Hospitalization No 11/24/24 08:51 Any Problems With Anesthesia Yes: FEELING LIKE COULDN'T 11/24/24 08:51 BREATHE AT ALL. DID WELL WITH 07/2024 PROCEDURE Cholinesterase deficiency No 11/24/24 08:51 You/Your Family Experience No 11/24/24 08:51 fever (hyperthermia) with Relationship Recent Exposure to Contagious No 07/28/24 12:17 Disease Does patient have nerve No 11/24/24 08:51 stimulator Patient instructed to have device shut off --Does patient have Pacemaker or ICD? When Was Last Pacemaker Check QUESTION #4 FULL TEXT: You/Your Family Experience fever (hyperthermia) with Anesthesia Last Oral Intake Last Oral intake: Last Oral Intake NPO since Meds taken in AM with sips of water? Meds patient instructed to take am of surgery PONV PONV - medical customer service representative: PONV - medical customer service representative Female Yes 11/24/24 08:51 HX of Motion Sickness No 11/24/24 08:51 HX of N/V After Surgery No 11/24/24 08:51 Non-Smoker Yes 11/24/24 08:51 Duration of Surgery greater No 11/24/24 08:51 than 60 minutes Number of Risk Factors 2 11/24/24 08:51 PONV Score Moderate Risk 11/24/24 08:51 Height & Weight Height & Weight: Anesthesia: Height & Weight Height 5 ft 4 in 09/29/24 12:52 Respiratory Assessment Respiratory Assessment - medical customer service representative: Respiratory Tract Infection Hx - medical customer service representative Hx Respiratory Tract Infection Yes: COUGH FOR 3 MONTHS/NO 11/24/24 08:51 FEVER STOP Sleep Apnea STOP Sleep Apnea - medical customer service representative: STOP Sleep Apnea - medical customer service representative Hx Hypertension Yes: CONTROLLED ON MED 11/24/24 08:51 Hx Sleep Apnea No 11/24/24 08:51 CPAP BIPAP Do you snore loudly (louder No 11/24/24 08:51 than talking or can be heard Do you often feel tired/ No 11/24/24 08:51 fatigued/ sleepy during daytime? Has anyone observed you stop No 11/24/24 08:51 breathing during sleep? STOP Results Negative 11/24/24 08:51 QUESTION #5 FULL TEXT : Do you snore loudly (louder than talking or can be heard through closed doors)? Tobacco Use History Tobacco Use History - medical customer service representative: Tobacco Use History - medical customer service representative Tobacco Use Smoking Status Never smoker 11/24/24 08:51 Hx Tobacco Use No 11/24/24 08:51 Years Smoking Packs Smoked per Day Smoking Cessation Date was within the last 15 years Hx Smoking Cessation Date Hx Smoking Cessation Counseling Hematologic Medial History Hematologic Hx - medical customer service representative: Hematologic Medical Hx - bundler Hx of Blood Transfusion No 11/24/24 08:51 Hx of Transfusion in last 3 No 11/24/24 08:51 Months Date of Last Transfusion (if within last 3 months) Ever experience any problems No 11/24/24 08:51 with transfusion(s)? Specify any problems Hx of Preganancy in last 3 No 11/24/24 08:51 Months Nurse Filling Out Transfusion DSCHRIBER 11/24/24 08:51 & Questions: Date: 11/24/24 11/24/24 08:51 Time: 08:51 11/24/24 08:51 Patient unable to answer at this time (ie. confused, unrespo /Reproduction History /Reproductive History - medical customer service representative: /Reproductive Hx- medical customer service representative Hx Now No 11/24/24 08:51 Gestational Age (in weeks): EDC: Hx Hx Para Hx Section SAB No 11/24/24 08:51 [facility] Medical History (Updated 11/24/24 @ 09:06 by Cari Claros) History of ulceration Cardiology follow-up encounter Bradycardia Vitamin D deficiency Heart murmur Hypothyroidism Chest pain Wears hearing aid Wears dentures Wears glasses Post-menopausal Thyroid disease Difficulty swallowing History of diverticulitis Shortness of breath on exertion History of echocardiogram History of stress test Left ankle sprain Strain of left foot Left foot pain Acute pharyngitis, unspecified Acute sinusitis, unspecified Incontinence Back pain Diabetes Arthritis HTN (hypertension) Home Medications ?Medication ?Instructions ?Recorded ?Last Taken ?Type amiloride 5 mg tablet 10 mg PO DAILY DIURETIC 01/10/14 Unknown History L.acidoph,paracasei,B.animalis 10 1 ea PO DAILY 04/19/16 07/27/24 History billion cell capsule vitamin E (dl, acetate) 180 mg 400 units PO DAILY 05/21/16 07/27/24 History (400 unit) capsule acetaminophen 500 mg tablet 500 mg PO Q6H PRN pain 07/08/24 Unknown History (Tylenol Extra Strength) garlic 1,000 mg capsule 1,000 mg PO QDAY 07/08/24 07/27/24 History Calcium CITRATE 2 tab PO DAILY 07/28/24 07/27/24 History CBD oil 4 drp PO BID 09/22/24 Unknown History metoprolol succinate 50 mg 50 mg PO QDAY 09/22/24 Unknown History tablet,extended release 24 hr (Toprol XL) levothyroxine 125 mcg tablet 187.5 mcg PO LONG 09/23/24 Unknown History Dynamic Brain 1 cap PO DAILY 09/29/24 Unknown History Dynamic Mushrooms 1 cap PO DAILY 09/29/24 Unknown History cholecalciferol (vitamin D3) 125 125 mcg PO DAILY 11/24/24 Unknown History mcg (5,000 unit) tablet levothyroxine 125 mcg capsule 125 mcg PO MOTUWETHFRSA 11/24/24 Unknown History Allergy/AdvReac Type Severity Reaction Status Date / Time levofloxacin Allergy Severe Other Verified 11/24/24 08:45 pantoprazole Allergy Severe Diarrhea Verified 11/24/24 08:45 Proton Pump Inhibitors Allergy Intermediate Other Verified 11/24/24 08:45 sucralfate Allergy Intermediate Other Verified 11/24/24 09:14 fluticasone (From Flonase) Allergy Mild UNKNOWN Verified 11/24/24 08:45 hydrochlorothiazide Allergy Mild UNKNOWN Verified 11/24/24 08:45 salicylates Allergy Mild UNKNOW Verified 11/24/24 08:45 amlodipine Allergy Other Verified 11/24/24 08:45 clindamycin Allergy Other Verified 11/24/24 08:45 Corticosteroids Allergy NEEDS Verified 11/24/24 08:45 (Glucocorticoids) FOLLOW-UP famotidine Allergy Other Verified 11/24/24 08:45 grape flavor Allergy Other Verified 11/24/24 08:45 peppermint Allergy Other Verified 11/24/24 08:45 rosuvastatin Allergy Other Verified 11/24/24 08:45 codeine AdvReac Vomiting Verified 11/24/24 08:45 dexamethasone AdvReac All blood Verified 11/24/24 08:45 cells low erythromycin base AdvReac Unknown Verified 11/24/24 08:45 (Erythromycin Base) fluticasone propionate (From AdvReac Unknown Verified 11/24/24 08:45 Flonase) lisinopril (From Zestril) AdvReac Unknown Verified 11/24/24 08:45 Penicillins AdvReac Unknown Verified 11/24/24 08:45 rofecoxib (From Vioxx) AdvReac Unknown Verified 11/24/24 08:45 terbinafine HCl (From AdvReac Unknown Verified 11/24/24 08:45 Lamisil) tetracycline (Tetracycline) AdvReac Unknown Verified 11/24/24 08:45 Family History Mother Hypertension Surgical History (Updated 11/24/24 @ 09:01 by Cari Claros) History of colonoscopy Hx of total thyroidectomy History of esophagogastroduodenoscopy (EGD) Hx of melanoma excision Hx of cataract surgery History of knee replacement Deviated nasal septum Carpal tunnel syndrome H/O tubal ligation History of tonsillectomy Social History Smoking Status: Never smoker alcohol intake: never substance use type: does not use caffeine: No Audit: Pertinent Findings Pertinent Findings EKG Perinent findings: September 29, 2024. Sinus rhythm. Left axis anterior fascicular block. Voltage criteria for LVH. Voltage criteria without ST-T abnormality may be normal variant. Stress test pertinent findings: October 12, 2024. Ejection fraction 74%. No ischemia noted. No previous infarct noted. Echo (EF%) pertinent findings: January 02, 2024. Ejection fraction 70%. Pulmonary artery systolic pressure is 35 mmHg. No aortic stenosis is noted. Consult pertinent findings: September 29, 2024. Dr. Rodrigues. 1. Patient being evaluated for chest pain. Chest pain seems to be sharp in quality. Patient states this started after she started using Carafate and improved after she stopped taking Carafate. Patient does have some risk factors for coronary disease and had an abnormal EKG. Thus we will plan to do a Persantine stress test to evaluate. See stress above. 2. Bradycardia-patient was feeling lightheaded and had an episode of syncope. Toprol was decreased to 50 mg daily which the patient is now tolerating without incident. Recommendation Anesthesia Recommendation Anesthesia recommendation: OPTIMIZED for anesthesia
[2024-11-25 07:03] VITALS: BP 135/66; PULSE 67; RESP 16; TEMP 37.7; O2SAT 98; BMI 38.6
--- NOTE | 2024-11-25 07:06 | PRE.ANES_ITS ---
ASA Classification* ASA Classification ASA Classification: 2 Assessment & Plan Anesthesia* Anesthesia Assessment Anesthesia Assessment: Discussed sedation and/or anesthesia options, risks, benefits, and alternatives with patient/parents/legal guardian/POA. Questions invited. The patient/parents/legal guardian/POA seems to understand and agrees to proceed with anesthesia plan. Reviewed the physical assessment, medical history, allergy history and patient home medications list prior to surgery/procedure/anesthetic and documented any changes. Performed airway and anesthesia risk assessments. Anesthesia Type Anesthesia Type: MAC Anesthesia Focused Assessment* Airway Assessment Mouth opens: >3 cm Mallampati Score: II Focused Labs Anesthesia Preop lab: CBC WBC 9.1 K/mm3 (4.4-11.0) 09/04/24 15:07 09/04/24 RBC 4.14 M/mm3 (4.2-5.4) L 09/04/24 15:07 09/04/24 Hgb 13.2 g/dL (12.0-15.0) 09/04/24 15:07 09/04/24 Hct 40.0 % (37-47) 09/04/24 15:07 09/04/24 Plt Count 237 K/mm3 (150-450) 09/04/24 15:07 09/04/24 CHEMISTRY Potassium 4.2 mmol/L (3.5-5.1) 09/04/24 15:07 09/04/24 Sodium 137 mmol/L (136-145) 09/04/24 15:07 09/04/24 Magnesium 2.3 mg/dL (1.6-2.6) 04/03/24 11:39 04/03/24 BUN 17 mg/dL (7-18) 09/04/24 15:07 09/04/24 Creatinine 0.76 mg/dL (0.55-1.02) 09/04/24 15:07 09/04/24 Glucose 97 mg/dL (74-106) 09/04/24 15:07 09/04/24 TSH 3.600 uIU/mL (0.358-3.740) 09/29/24 14:59 12 COAG Pre-Assessment Diagnosis/Proposed Procedure Planned Operative Procedure(s): EGD Anesthesia History Anesthesia History - photographic press screwmaker: Anesthesia History - photographic press screwmaker Hx Hospitalization No 11/24/24 08:51 Any Problems With Anesthesia Yes: FEELING LIKE COULDN'T 11/24/24 08:51 BREATHE AT ALL. DID WELL WITH 07/2024 PROCEDURE Cholinesterase deficiency No 11/24/24 08:51 You/Your Family Experience No 11/24/24 08:51 fever (hyperthermia) with Relationship Recent Exposure to Contagious No 07/28/24 12:17 Disease Does patient have nerve No 11/24/24 08:51 stimulator Patient instructed to have device shut off --Does patient have Pacemaker or ICD? When Was Last Pacemaker Check QUESTION #4 FULL TEXT: You/Your Family Experience fever (hyperthermia) with Anesthesia Last Oral Intake Last Oral intake: Last Oral Intake NPO since Meds taken in AM with sips of water? Meds patient instructed to take am of surgery PONV PONV - photographic press screwmaker: PONV - photographic press screwmaker Female Yes 11/24/24 08:51 HX of Motion Sickness No 11/24/24 08:51 HX of N/V After Surgery No 11/24/24 08:51 Non-Smoker Yes 11/24/24 08:51 Duration of Surgery greater No 11/24/24 08:51 than 60 minutes Number of Risk Factors 2 11/24/24 08:51 PONV Score Moderate Risk 11/24/24 08:51 Height & Weight Height & Weight: Anesthesia: Height & Weight Height 5 ft 4 in 09/29/24 12:52 Respiratory Assessment Respiratory Assessment - photographic press screwmaker: Respiratory Tract Infection Hx - photographic press screwmaker Hx Respiratory Tract Infection Yes: COUGH FOR 3 MONTHS/NO 11/24/24 08:51 FEVER STOP Sleep Apnea STOP Sleep Apnea - photographic press screwmaker: STOP Sleep Apnea - photographic press screwmaker Hx Hypertension Yes: CONTROLLED ON MED 11/24/24 08:51 Hx Sleep Apnea No 11/24/24 08:51 CPAP BIPAP Do you snore loudly (louder No 11/24/24 08:51 than talking or can be heard Do you often feel tired/ No 11/24/24 08:51 fatigued/ sleepy during daytime? Has anyone observed you stop No 11/24/24 08:51 breathing during sleep? STOP Results Negative 11/24/24 08:51 QUESTION #5 FULL TEXT : Do you snore loudly (louder than talking or can be heard through closed doors)? Tobacco Use History Tobacco Use History - photographic press screwmaker: Tobacco Use History - photographic press screwmaker Tobacco Use Smoking Status Never smoker 11/24/24 08:51 Hx Tobacco Use No 11/24/24 08:51 Years Smoking Packs Smoked per Day Smoking Cessation Date was within the last 15 years Hx Smoking Cessation Date Hx Smoking Cessation Counseling Hematologic Medial History Hematologic Hx - photographic press screwmaker: Hematologic Medical Hx - enterprise resource analyst Hx of Blood Transfusion No 11/24/24 08:51 Hx of Transfusion in last 3 No 11/24/24 08:51 Months Date of Last Transfusion (if within last 3 months) Ever experience any problems No 11/24/24 08:51 with transfusion(s)? Specify any problems Hx of Preganancy in last 3 No 11/24/24 08:51 Months Nurse Filling Out Transfusion DSCHRIBER 11/24/24 08:51 & Questions: Date: 11/24/24 11/24/24 08:51 Time: 08:51 11/24/24 08:51 Patient unable to answer at this time (ie. confused, unrespo /Reproduction History /Reproductive History - photographic press screwmaker: /Reproductive Hx- photographic press screwmaker Hx Now No 11/24/24 08:51 Gestational Age (in weeks): EDC: Hx Hx Para Hx Section SAB No 11/24/24 08:51 PFSH Medical History History of ulceration Cardiology follow-up encounter Bradycardia Vitamin D deficiency Heart murmur Hypothyroidism Chest pain Wears hearing aid Wears dentures Wears glasses Post-menopausal Thyroid disease Difficulty swallowing History of diverticulitis Shortness of breath on exertion History of echocardiogram History of stress test Left ankle sprain Strain of left foot Left foot pain Acute pharyngitis, unspecified Acute sinusitis, unspecified Incontinence Back pain Diabetes Arthritis HTN (hypertension) Home Medications ?Medication ?Instructions ?Recorded ?Last Taken ?Type amiloride 5 mg tablet 10 mg PO DAILY DIURETIC 12/2011/24/24 History L.acidoph,paracasei,B.animalis 10 1 ea PO DAILY 07/27/24 History billion cell capsule vitamin E (dl, acetate) 180 mg 400 units PO DAILY 11/0507/27/24 History (400 unit) capsule acetaminophen 500 mg tablet 500 mg PO Q6H PRN pain Unknown History (Tylenol Extra Strength) garlic 1,000 mg capsule 1,000 mg PO QDAY 07/08/24 History Calcium CITRATE 2 tab PO DAILY 07/28/2405/13 History CBD oil 4 drp PO BID 09/22/24 Unknow n History metoprolol succinate 50 mg 50 mg PO QDAY 09/22/2403/14 History tablet,extended release 24 hr (Toprol XL) levothyroxine 125 mcg tablet 187.5 mcg PO LONG 09/23/24 11/22/24 History Dynamic Brain 1 cap PO DAILY 09/29/24 Unkn own History Dynamic Mushrooms 1 cap PO DAILY 09/29/24 Unkn own History cholecalciferol (vitamin D3) 125 125 mcg PO DAILY 02/12 Unknown History mcg (5,000 unit) tablet levothyroxine 125 mcg capsule 125 mcg PO MOTUWETHFRSA 11/24/24 11/25/24 History Allergy/AdvReac Type Severity Reaction Status Date / Time levofloxacin Allergy Severe Other Verified 11/25/24 06:59 pantoprazole Allergy Severe Diarrhea Verified 11/25/24 06:59 Proton Pump Inhibitors Allergy Intermediate Other Verified 11/25/24 06:59 sucralfate Allergy Intermediate Other Verified 11/25/24 06:59 fluticasone (From Flonase) Allergy Mild UNKNOWN Verified 11/25/24 06:59 hydrochlorothiazide Allergy Mild UNKNOWN Verified 11/25/24 06:59 salicylates Allergy Mild UNKNOW Verified 11/25/24 06:59 amlodipine Allergy Other Verified 11/25/24 06:59 clindamycin Allergy Other Verified 11/25/24 06:59 Corticosteroids Allergy NEEDS Verified 11/25/24 06:59 (Glucocorticoids) FOLLOW-UP famotidine Allergy Other Verified 11/25/24 06:59 grape flavor Allergy Other Verified 11/25/24 06:59 peppermint Allergy Other Verified 11/25/24 06:59 rosuvastatin Allergy Other Verified 11/25/24 06:59 codeine AdvReac Vomiting Verified 11/25/24 06:59 dexamethasone AdvReac All blood Verified 11/25/24 06:59 cells low erythromycin base AdvReac Unknown Verified 11/25/24 06:59 (Erythromycin Base) fluticasone propionate (From AdvReac Unknown Verified 11/25/24 06:59 Flonase) lisinopril (From Zestril) AdvReac Unknown Verified 11/25/24 06:59 Penicillins AdvReac Unknown Verified 11/25/24 06:59 rofecoxib (From Vioxx) AdvReac Unknown Verified 11/25/24 06:59 terbinafine HCl (From AdvReac Unknown Verified 11/25/24 06:59 Lamisil) tetracycline (Tetracycline) AdvReac Unknown Verified 11/25/24 06:59 Family History Mother Hypertension Surgical History History of colonoscopy Hx of total thyroidectomy History of esophagogastroduodenoscopy (EGD) Hx of melanoma excision Hx of cataract surgery History of knee replacement Deviated nasal septum Carpal tunnel syndrome H/O tubal ligation History of tonsillectomy Social History Smoking Status: Never smoker alcohol intake: never substance use type: does not use caffeine: No Review of Systems (Anesthesia) ROS Narrative System reviewed and no additional complaints, except as documented.
[2024-11-25 07:26] LABS: Bedside Glucose 125 mg/dL (74-106)
--- NOTE | 2024-11-25 07:34 | PCM.HP.STD ---
HPI - General General Date of Admission: 11/25/24 Date of Service: 11/25/24 Chief Complaint: Dysphagia and peptic ulcer disease [facility] Narrative CUAUHTEMOC ARRINGTON, is a 74 F who presents presents for follow-up endoscopy. She had an EGD back in July 2024 in which she underwent esophageal dilation for Schatzki's ring and was discovered to have a large pyloric channel ulcer. She comes back in for surveillance of her gastric ulcer and redilation. [facility] Medical History (Updated 11/25/24 @ 07:[address] Peraza Friend, DO) History of ulceration Cardiology follow-up encounter Bradycardia Vitamin D deficiency Heart murmur Hypothyroidism Chest pain Wears hearing aid Wears dentures Wears glasses Post-menopausal Thyroid disease Difficulty swallowing History of diverticulitis Shortness of breath on exertion History of echocardiogram History of stress test Left ankle sprain Strain of left foot Left foot pain Acute pharyngitis, unspecified Acute sinusitis, unspecified Incontinence Back pain Diabetes Arthritis HTN (hypertension) Home Medications ?Medication ?Instructions ?Recorded ?Last Taken ?Type amiloride 5 mg tablet 10 mg PO DAILY DIURETIC 01/10/14 11/24/24 History L.acidoph,paracasei,B.animalis 10 1 ea PO DAILY 04/19/16 07/27/24 History billion cell capsule vitamin E (dl, acetate) 180 mg 400 units PO DAILY 05/21/16 07/27/24 History (400 unit) capsule acetaminophen 500 mg tablet 500 mg PO Q6H PRN pain 07/08/24 Unknown History (Tylenol Extra Strength) garlic 1,000 mg capsule 1,000 mg PO QDAY 07/08/24 07/27/24 History Calcium CITRATE 2 tab PO DAILY 07/28/24 07/27/24 History CBD oil 4 drp PO BID 09/22/24 Unknown History metoprolol succinate 50 mg 50 mg PO QDAY 09/22/24 11/25/24 History tablet,extended release 24 hr (Toprol XL) levothyroxine 125 mcg tablet 187.5 mcg PO LONG 09/23/24 11/22/24 History Dynamic Brain 1 cap PO DAILY 09/29/24 Unknown History Dynamic Mushrooms 1 cap PO DAILY 09/29/24 Unknown History cholecalciferol (vitamin D3) 125 125 mcg PO DAILY 11/24/24 Unknown History mcg (5,000 unit) tablet levothyroxine 125 mcg capsule 125 mcg PO MOTUWETHFRSA 11/24/24 11/25/24 History Allergy/AdvReac Type Severity Reaction Status Date / Time levofloxacin Allergy Severe Other Verified 11/25/24 06:59 pantoprazole Allergy Severe Diarrhea Verified 11/25/24 06:59 Proton Pump Inhibitors Allergy Intermediate Other Verified 11/25/24 06:59 sucralfate Allergy Intermediate Other Verified 11/25/24 06:59 fluticasone (From Flonase) Allergy Mild UNKNOWN Verified 11/25/24 06:59 hydrochlorothiazide Allergy Mild UNKNOWN Verified 11/25/24 06:59 salicylates Allergy Mild UNKNOW Verified 11/25/24 06:59 amlodipine Allergy Other Verified 11/25/24 06:59 clindamycin Allergy Other Verified 11/25/24 06:59 Corticosteroids Allergy NEEDS Verified 11/25/24 06:59 (Glucocorticoids) FOLLOW-UP famotidine Allergy Other Verified 11/25/24 06:59 grape flavor Allergy Other Verified 11/25/24 06:59 peppermint Allergy Other Verified 11/25/24 06:59 rosuvastatin Allergy Other Verified 11/25/24 06:59 codeine AdvReac Vomiting Verified 11/25/24 06:59 dexamethasone AdvReac All blood Verified 11/25/24 06:59 cells low erythromycin base AdvReac Unknown Verified 11/25/24 06:59 (Erythromycin Base) fluticasone propionate (From AdvReac Unknown Verified 11/25/24 06:59 Flonase) lisinopril (From Zestril) AdvReac Unknown Verified 11/25/24 06:59 Penicillins AdvReac Unknown Verified 11/25/24 06:59 rofecoxib (From Vioxx) AdvReac Unknown Verified 11/25/24 06:59 terbinafine HCl (From AdvReac Unknown Verified 11/25/24 06:59 Lamisil) tetracycline (Tetracycline) AdvReac Unknown Verified 11/25/24 06:59 Family History Mother Hypertension Surgical History History of colonoscopy Hx of total thyroidectomy History of esophagogastroduodenoscopy (EGD) Hx of melanoma excision Hx of cataract surgery History of knee replacement Deviated nasal septum Carpal tunnel syndrome H/O tubal ligation History of tonsillectomy Social History Smoking Status: Never smoker alcohol intake: never substance use type: does not use caffeine: No ROS Constitutional Constitutional: Denies fatigue, fever(s), poor appetite, weight gain or weight loss Gastrointestinal Gastrointestinal: Denies belching, bloating, change in bowel habits, change in stool character, chewing difficulty, coffee ground emesis, constipation, cramping, diarrhea, dyspepsia, dysphagia, early satiety, excessive flatus, fecal incontinence, heartburn, hematemesis, hematochezia, hemorrhoids, loose stools, melena, nausea, odynophagia, rectal bleeding, tenesmus, vomiting or weight changes Vital Signs Vital Signs Vital Signs: 11/25/24 07:03 11/25/24 07:03 Temperature 99.8 F H Temperature Source Temporal Pulse Rate 67 Respiratory Rate 16 Respiratory Pattern Normal Blood Pressure 135/66 H Blood Pressure Mean 89 Blood Pressure Source Monitor Blood Pressure Position Semi-Fowlers Blood Pressure Location Left Arm Pulse Ox 98 Oxygen Delivery Method Room Air Weight Weight: 224 lb 13.944 oz Body Mass Index (BMI) 38.6 Physical Exam Const alert, oriented x3, no apparent distress and healthy appearing General Appearance: cooperative GI normal to inspection, nondistended, normoactive bowel sounds, soft to palpation, non-tender and non-distended Percussion: normal to percussion Rectal Exam: deferred Results Lab / Micro Data Labs: Laboratory Results - last 24 hr 11/25/24 07:05: POC Glucose 125 H Assessment & Plan Assessment/Plan (1) GERD (gastroesophageal reflux disease): (2) Gastric ulcer: (3) Difficulty swallowing: PLAN: Plan Patient she was explained alternatives, risk, benefits including not withstanding bleeding, infection, sepsis, perforation, need for emergent urgent . She will have an ASA of 3.
--- NOTE | 2024-11-25 07:45 | EGD_PTH ---
PATIENT: CUAUHTEMOC ARRINGTON LOC: EN U#:[id number] AGE/SX: 74/F ROOM: RE11/25/[address]: Dr. Stu Jara DO : 1950 BED: DIS: 11/25/2024 SPEC #: [id number] RECD: 11/25/24 12:29 STATUS: TORIBIO RELenard #: [id number] DAVID: 11/25/24 07:[address]: Stu Jara DEPT: SURGICAL PATHOLOGY RECD BY: Laurie Rivas ENTERED: 11/25/24 13:27 SP TYPE: EGD BIOPSY OT DR: Tri Singh MD Tissues: Esophagus, NOS Procedures: Special Stain Group I Surgery Specimen Level IV Alcian Blue/PAS (control) HEADER OPERATION: EGD with biopsy, electrohemostasis, dilatation PRE-OP DIAGNOSIS: GERD, gastric ulcer, difficulty swallowing TISSUE SUBMITTED: Distal esophagus biopsy MICROSCOPIC DIAGNOSIS Distal esophagus, biopsy: Fragments of gastroesophageal mucosa with moderate chronic inflammation and mild acute inflammation. Intestinal metaplasia (goblet cell metaplasia) not identified.' See comment. 11/26/2024 COMMENT Alcian blue/PAS stain with matched control is used in the evaluation of the specimen. MICROSCOPIC DESCRIPTION Slides are reviewed. GROSS DESCRIPTION Received in fixative is one container labeled with the patient's name and designated Distal esophagus biopsy. The specimen consists of multiple irregular fragments of light morgan soft tissue that in aggregate measure 1.6 x 0.4 x 0.2 cm. The specimen is totally submitted in one cassette. MS/ 11/25/2024 TC:3 CPT:06591,07269
[2024-11-25 08:10] VITALS: BP 112/54; BP 135/66; PULSE 75; RESP 16; TEMP 36.4; O2SAT 97
--- NOTE | 2024-11-25 08:10 | PCM.POST.ANE ---
Anesthesia: Postop Eval I Current Vital Signs Temperature: 97.6 F Pulse Rate: 75 Blood Pressure: 112/54 Respiratory Rate: 16 Pulse Ox: 95 Oxygen Delivery Method: Room Air Assessment Airway patent: Yes Spontaneous unlabored respirations: Yes Mental status: Awake and Calm nausea: No Vomiting: No Anesthesia Complication: No Fluid Hydration Crystalloid volume administer (ml): 10 Total IV fluid infused: 10 Progress Note Anesthesia document: Postop Eval 1 completed: Yes
[2024-11-25 08:15] VITALS: BP 115/61; BP 135/66; PULSE 66; RESP 16; O2SAT 96
--- NOTE | 2024-11-25 08:16 | OP.EGD_ITS ---
Patient Name: Erinn Allen Procedure Date: 11/25/2024 7:41 AM Date of : 1950 Age: 74 Procedure: Upper GI endoscopy Indications: Dysphagia Providers: Stu Jara DO Referring MD: Tri Singh Md Medicines: Monitored Anesthesia Care Patient Profile: This is a 74 year old female. Refer to note in patient chart for documentation of history and physical. Patient has symptoms of dysphagia with solids. Complications: No immediate complications. Procedure: Pre-Anesthesia Assessment: - Prior to the procedure, a History and Physical was performed, and patient medications and allergies were reviewed. The patient is competent. The risks and benefits of the procedure and the sedation options and risks were discussed with the patient. All questions were answered and informed consent was obtained. Patient identification and proposed procedure were verified by the physician in the pre-procedure area. Mental Status Examination: alert and oriented. Airway Examination: normal oropharyngeal airway and neck mobility. Respiratory Examination: clear to auscultation. CV Examination: normal. Prophylactic Antibiotics: The patient does not require prophylactic antibiotics. Prior Anticoagulants: The patient has taken no anticoagulant or antiplatelet agents except for NSAID medication. ASA Grade Assessment: II - A patient with mild systemic disease. After reviewing the risks and benefits, the patient was deemed in satisfactory condition to undergo the procedure. The anesthesia plan was to use monitored anesthesia care (MAC). Immediately prior to administration of medications, the patient was re-assessed for adequacy to receive sedatives. The heart rate, respiratory rate, oxygen saturations, blood pressure, adequacy of pulmonary ventilation, and response to care were monitored throughout the procedure. The physical status of the patient was re-assessed after the procedure. After obtaining informed consent, the endoscope was passed under direct vision. Throughout the procedure, the patient's blood pressure, pulse, and oxygen saturations were monitored continuously. The gastroscope was introduced through the mouth, and advanced to the second part of duodenum. The upper GI endoscopy was accomplished without difficulty. The patient tolerated the procedure well. Scope In: 7:53:44 AM Scope Out: 8:04:17 AM Total Procedure Duration Time 0 hours 10 minutes 33 seconds Findings: Abnormal motility was noted in the esophagus. The cricopharyngeus was abnormal. There are extra peristaltic waves in the esophageal body. The distal esophagus/lower esophageal sphincter is spastic, but gives up passage to the endoscope. Secondary peristaltic waves are noted. LA Grade B (one or more mucosal breaks greater than 5 mm, not extending between the tops of two mucosal folds) esophagitis with bleeding was found 38 to 40 cm from the incisors. Biopsies were taken with a cold forceps for histology. Verification of patient identification for the specimen was done. Coagulation for tissue destruction using heater probe was successful. Estimated blood loss was minimal. A moderate Schatzki ring was found at the gastroesophageal junction. A guidewire was placed and the scope was withdrawn. Dilation was performed with a Savary dilator with no resistance at 54 Fr. The dilation site was examined and showed moderate mucosal disruption. Estimated blood loss was minimal. A medium-sized hiatal hernia was present. No gross lesions were noted in the stomach. No gross lesions were noted in the duodenal bulb. One benign-appearing, intrinsic moderate stenosis was found 20 to 23 cm from the incisors. This stenosis measured 5 mm (inner diameter) x 3 cm (in length). The stenosis was traversed. A guidewire was placed and the scope was withdrawn. Dilation was performed with a Savary dilator with no resistance at 54 Fr. The dilation site was examined and showed moderate mucosal disruption. Estimated blood loss was minimal. Impression: - Abnormal esophageal motility, established presbyesophagus. - LA Grade B erosive esophagitis with bleeding. Biopsied. Treated with a heater probe. - Moderate Schatzki ring. Dilated. - Medium-sized hiatal hernia. - No gross lesions in the stomach. - No gross lesions in the duodenal bulb. Recommendation: - Discharge patient to home. - Resume previous diet. - Use Protonix (pantoprazole) 40 mg PO BID. - Continue present medications. Procedure Code(s): --- Professional --- 90248, 59, Esophagogastroduodenoscopy, flexible, transoral; with control of bleeding, any method 17010, 51, Esophagogastroduodenoscopy, flexible, transoral; with biopsy, single or multiple CPT copyright 2021 [employer]. All rights reserved. The codes documented in this report are preliminary and upon floor scrubber review may be revised to meet current compliance requirements. Stu Jara DO 11/25/2024 8:15:38 AM This report has been signed electronically. Number of Addenda: 0 Note Initiated On: 11/25/2024 7:41 AM
--- NOTE | 2024-11-25 08:16 | OP.CCLET_ITS ---
11/25/2024 Tri Singh Md Re : Upper GI endoscopy procedure for Erinn Allen Dear [place] This procedure was performed on Monday, November 25, 2024. My impressions and recommendations are as follows: Impressions : - Abnormal esophageal motility, established presbyesophagus. - LA Grade B erosive esophagitis with bleeding. Biopsied. Treated with a heater probe. - Moderate Schatzki ring. Dilated. - Medium-sized hiatal hernia. - No gross lesions in the stomach. - No gross lesions in the duodenal bulb. Recommendations : - Discharge patient to home. - Resume previous diet. - Use Protonix (pantoprazole) 40 mg PO BID. - Continue present medications. My findings are described in the full procedure note, which is enclosed. If I can be of further assistance, please feel free to contact me at . Sincerely, Stu Friend, DO 11/25/2024 8:15:38 AM This report has been signed electronically.
[2024-11-25 08:20] VITALS: BP 114/71; BP 135/66; PULSE 64; RESP 16; TEMP 36.7; O2SAT 96
[2024-11-25 08:38] VITALS: BP 135/66
[2024-11-25 08:44] VITALS: BP 112/54; PULSE 75; RESP 16; TEMP 36.4; O2SAT 95
--- NOTE | 2024-11-25 08:51 | POSTOPAN2_ITS ---
Anesthesia Postop Eval I Sum Postop Eval Completion status Anesthesia document: Postop Eval 1 completed: Yes Anesthesia Postop Eval I Summary Anesthesia Postop Eval I Summary: Anesthesia Postop Eval I: Assessment Summary Airway patent Yes 11/25/24 08:44 DIESEL TRACTOR ENGINE MECHANIC.[email or web address] Spontaneous unlabored Yes 11/25/24 08:44 DIESEL TRACTOR ENGINE MECHANIC.GDOTT respirations Mental status Awake,Calm 11/25/24 08:44 DIESEL TRACTOR ENGINE MECHANIC.GDOTT nausea No 11/25/24 08:44 DIESEL TRACTOR ENGINE MECHANIC.GDOTT Vomiting No 11/25/24 08:44 DIESEL TRACTOR ENGINE MECHANIC.GDOTT Anesthesia Postop Eval I: Fluid Summary Crystalloid volume administer 10 11/25/24 08:44 DIESEL TRACTOR ENGINE MECHANIC.GDOTT (ml) Colloids volume administered ( ml) Blood Product volume administered (ml) Total IV fluid infused 10 11/25/24 08:44 DIESEL TRACTOR ENGINE MECHANIC.GDOTT Anesthesia Postop Eval I: Summary Notes Anesthesia Complication No 11/25/24 08:44 DIESEL TRACTOR ENGINE MECHANIC.GDOTT Anesthesia Complication Comment: Post-operative progress note Anesthesia: Postop Eval II Evaluation Mental status: Awake Pain Level: 0 nausea: No Vomiting: No
--- NOTE | 2024-11-25 08:51 | PCM.POSTANE2 ---
Anesthesia Postop Eval I Sum Postop Eval Completion status Anesthesia document: Postop Eval 1 completed: Yes Anesthesia Postop Eval I Summary Anesthesia Postop Eval I Summary: Anesthesia Postop Eval I: Assessment Summary Airway patent Yes 11/25/24 08:44 [email or web address] Spontaneous unlabored Yes 11/25/24 08:44 [email or web address] respirations Mental status Awake,Calm 11/25/24 08:44 [email or web address] nausea No 11/25/24 08:44 [email or web address] Vomiting No 11/25/24 08:44 [email or web address] Anesthesia Postop Eval I: Fluid Summary Crystalloid volume administer 10 11/25/24 08:44 [email or web address] (ml) Colloids volume administered ( ml) Blood Product volume administered (ml) Total IV fluid infused 10 11/25/24 08:44 [email or web address] Anesthesia Postop Eval I: Summary Notes Anesthesia Complication No 11/25/24 08:44 [email or web address] Anesthesia Complication Comment: Post-operative progress note Anesthesia: Postop Eval II Evaluation Mental status: Awake Pain Level: 0 nausea: No Vomiting: No
== END 2024-11-25 08:51 | disposition home or self-care (01) ==
LOC: EN 06:41 → AC 06:46
PROVIDERS: PCP Family Medicine; Referring Provider Family Medicine; Visit Provider Internal Medicine Gastroenterology
PROC: 0DJ08ZZ Inspection of Upper Intestinal Tract, Via Natural or Artificial Opening Endoscopic (ICD-10-PCS; CPT 43235; principal; 2024-11-25 07:40)
DX: K22.2 Esophageal obstruction (principal); E11.9 Type 2 diabetes mellitus without complications; K44.9 Diaphragmatic hernia without obstruction or gangrene; K25.9 Gastric ulcer, unspecified as acute or chronic, without hemorrhage or perforation; I10 Essential (primary) hypertension; Z79.899 Other long term (current) drug therapy; Z79.890 Hormone replacement therapy; E89.0 Postprocedural hypothyroidism; K22.11 Ulcer of esophagus with bleeding; K21.00 Gastro-esophageal reflux disease with esophagitis, without bleeding
CPT/HCPCS: 43255; 43248; 43239; 82962; 88305; 88312; A4216; C1769

== ENCOUNTER → 2024-12-29 | Outpatient (CLI) | payer MEDICARE, SELFPAY ==
--- NOTE | 2024-12-29 15:10 | VDLE_ITS ---
Reason For Study Reason For Study: Left leg pain RIGHT LEFT CFV is compressible, spontaneous, phasic, competent GSV is normal. and demonstrates normal augmentation. CFV is compressible, spontaneous, phasic, competent, Procedure and demonstrates normal augmentation. This is a venous duplex using B-mode, color flow and FV is compressible, spontaneous, phasic, competent spectral Doppler. and demonstrates normal augmentation. Exam performed in department. POP V is compressible, spontaneous, phasic, competent A preliminary report was called and/or faxed to and demonstrates normal augmentation. [place] [employer]-C. T/P Trunk is compressible. PTV is compressible. LT PerV is compressible. Nonvascularized structure noted in the left popliteal fossa that extends to the mid calf. VL/Venous Duplex US, Unilateral Interpretation Summary Deep veins of the left lower extremity are patent and compressible segmentally. There is no evidence of left lower extremity deep vein thrombosis. The left great saphenous vein appears patent an d compressible segmentally. Nonvascularized structure noted in the left popliteal fossa that extends to the mid calf. Ordering Physician: Rogelio Paul Referring Physician: Tri Singh Performed By: Mei Gregg RVT
== END | disposition home or self-care (01) ==
LOC: CVS 15:06
PROVIDERS: PCP Family Medicine
DX: M79.605 Pain in left leg (principal)
CPT/HCPCS: 93971

== ENCOUNTER → 2025-01-26 | Outpatient (CLI) | payer MEDICARE, SELFPAY ==
[2025-01-26 14:13] LABS: ALB/GLOB Ratio 1.5 RATIO (0.9-2.4); AST(SGOT) 21 U/L (<=31); Alanine Aminotransfer ALT/SGPT 16 U/L (<=34); Albumin, Serum 4.1 g/dL (3.4-4.8); Alkaline Phosphatase 48 U/L (35-104); Anion Gap 11 (5-15); BUN 17 mg/dL (4-19); BUN/Creat Ratio 25.4 RATIO (10-20); Calcium,Total 9.1 mg/dL (7.6-11.0); Carbon Dioxide 26.9 mmol/L (21.0-32.0); Chloride 102 mmol/L (98-108); Creatinine, Serum 0.68 mg/dL (0.70-1.20); EST Glomerular Filtration Rate 91 (>60); Globulin 2.7 g/dL (2.2-4.2); Glucose 96 mg/dL (70-99); Magnesium 2.1 mg/dL (1.5-2.2); Potassium 4.8 mmol/L (3.3-5.1); Protein, Total 6.8 g/dL (5.9-8.4); Sodium Level 139 mmol/L (133-145)
== END | disposition home or self-care (01) ==
LOC: LAB 12:37
PROVIDERS: PCP Family Medicine; Referring Provider Internal Medicine Endocrinology, Diabetes & Metabolism; Visit Provider Internal Medicine Endocrinology, Diabetes & Metabolism
DX: E89.0 Postprocedural hypothyroidism (principal); E83.42 Hypomagnesemia
CPT/HCPCS: 36415; 80053; 83735; 84439; 84443

== ENCOUNTER → 2025-03-01 | Outpatient (CLI) | payer MEDICARE, SELFPAY ==
--- NOTE | 2025-03-01 10:36 | RAD_ITS ---
PROCEDURE: ANKLE MIN 3 VIEWS 03/01/2025 REASON FOR EXAM: RIGHT ANKLE PAIN, MEDIAL TECHNIQUE: 3 views of the right ankle, 4 total images FINDINGS: No fracture or dislocation. Small calcific density at the lateral aspect of the joint may represent intra-articular osseous body versus secondary ossification center. This is not well localized on the other views. Soft tissue swelling. Osteoarthrosis. Enthesophyte formation at the Achilles and plantar surfaces of the calcaneus. RAD/Ankle min 3 Views IMPRESSION: No fracture or dislocation. Small calcific density at the lateral aspect of the joint may represent intra-a rticular osseous body versus secondary ossification center. This is not well localized on the other views. Soft tissue swelling. Reading Location: [id number]
== END | disposition home or self-care (01) ==
LOC: MTRAD 10:36
PROVIDERS: PCP Family Medicine; Referring Provider Family Medicine; Visit Provider Family Medicine
DX: S99.911A Unspecified injury of right ankle, initial encounter (principal); X58.XXXA Exposure to other specified factors, initial encounter
CPT/HCPCS: 73610

== ENCOUNTER → 2025-03-13 | Outpatient (CLI) | payer MEDICARE, SELFPAY ==
--- NOTE | 2025-03-13 12:30 | MRI_ITS ---
PROCEDURE: SPINE LUMBAR (ROUTINE) 03/13/2025 REASON FOR EXAM: PAIN TECHNIQUE: Multiplanar and multisequence images were obtained without IV contrast administration. FINDINGS: Grade 1-2 subluxation of L5 upon S1 but no compression deformity. Normal conus. No tethered cord. At L1-2, there is no central stenosis but there is a right paracentral disc bulge. At L2-3, there is no central or foraminal stenosis. At L3-4, moderate to severe spinal stenosis due to broad-based disc protrusion without foraminal impingement. Facet and ligamentous hypertrophy also play a role. At L4-5 moderate to severe spinal stenosis with extensive hypertrophic irregularity of the left-sided facet joint and ligaments. This creates quite irregular appearance on axial images 18 and 19. There is moderate left L4 foraminal stenosis. L5-S1 demonstrates grade 1-2 subluxation and moderate foraminal narrowing on both sides. Severe central spinal stenosis MRI/Spine Lumbar (Routine) IMPRESSION: Moderate to severe spinal stenosis at L3-4 and L4-5 with severe central spinal stenosis at L5-S1. No definite foraminal nerve root compression. Reading [facility]
== END | disposition home or self-care (01) ==
LOC: MRI 11:49
PROVIDERS: PCP Family Medicine; Referring Provider Student in an Organized Health Care Education/Training Program; Visit Provider Student in an Organized Health Care Education/Training Program
DX: M54.50 Low back pain, unspecified (principal)
CPT/HCPCS: 72148

== ENCOUNTER → 2025-04-05 | Outpatient (CLI) | payer MEDICARE, SELFPAY | END | disposition home or self-care (01) | LOC: LAB 06:49 | PROVIDERS: PCP Family Medicine; Referring Provider Nurse Practitioner Adult Health; Visit Provider Nurse Practitioner Adult Health | DX: E89.0 Postprocedural hypothyroidism (principal) | CPT/HCPCS: 36415; 84443 ==

== ENCOUNTER → 2025-05-10 | Outpatient (CLI) | payer MEDICARE, SELFPAY | END | disposition home or self-care (01) | LOC: LAB 07:59 | PROVIDERS: PCP Family Medicine; Referring Provider Internal Medicine Endocrinology, Diabetes & Metabolism; Visit Provider Internal Medicine Endocrinology, Diabetes & Metabolism | DX: E89.0 Postprocedural hypothyroidism (principal) | CPT/HCPCS: 36415; 84439; 84443 ==

== ENCOUNTER → 2025-06-28 | Outpatient (CLI) | payer MEDICARE, SELFPAY | END | disposition home or self-care (01) | LOC: LAB 06:02 | PROVIDERS: PCP Family Medicine; Referring Provider Nurse Practitioner Adult Health; Visit Provider Nurse Practitioner Adult Health | DX: E89.0 Postprocedural hypothyroidism (principal) | CPT/HCPCS: 36415; 84439; 84443 ==

== ENCOUNTER 2025-08-07 02:42 | Emergency (ER) | payer MEDICARE, SELFPAY ==
[2025-08-07 02:43] VITALS: BP 173/94; PULSE 80; RESP 16; TEMP 36.6; O2SAT 100; BMI 40.6
--- NOTE | 2025-08-07 03:17 | EKG12_ITS ---
Test Reason : CP Blood Pressure : */* mmHG Vent. Rate : 73 BPM Atrial Rate : 73 BPM P-R Int : 160 ms QRS Dur : 118 ms QT Int : 386 ms P-R-T Axes : 57 -45 57 degrees QTcB Int : 425 ms Normal sinus rhythm Left anterior fascicular block Left ventricular hypertrophy with QRS widening ( R in aVL , [place] product ) Abnormal ECG Confirmed by EVE HIRSCH MD ([id number]), film and video editor RICO SAUNDERS ([id number]) on 08/09/2025 6:57:41 AM Referred By: LIEN Confirmed By: EVE HIRSCH MD
[2025-08-07 03:27] LABS: Hematocrit 39.8 % (37-47); Hemoglobin 13.5 g/dL (12.0-15.0); Immature Granulocytes Count 0.020 X10^3/uL (0.0-0.0); Mean Corp Hgb Conc 33.9 g/dL (32-36); Mean Corpuscular Volume 95.9 fL (81-99); Mean Platelet Vol. 11.5 fl (6.2-12.0); NRBC Flagged by Analyzer 0 % (0-5); POSITIVE DIFFERENTIAL YES; POSITIVE MORPHOLOGY YES; Platelet Count 246 K/mm3 (150-450); RBC Distribution Width CV 13.2 % (11.6-14.6); RBC Distribution Width SD 46.7 fl (35.1-43.9); Red Blood Count 4.15 M/mm3 (4.2-5.4); White Blood Count 12.5 K/mm3 (4.4-11.0)
[2025-08-07 03:28] LABS: Differential Indicated SCAN CRITERIA MET
--- NOTE | 2025-08-07 03:35 | RAD_ITS ---
PROCEDURE: CHEST PA AND LATERAL 08/07/2025 REASON FOR EXAM: CHEST PAIN TECHNIQUE: Procedure Code: RADCXR Modality: DX Procedure: CHEST PA AND LATERAL COMPARISON: 09/04/2024 FINDINGS: The lungs are expanded. There is no demonstrated parenchymal abnormality. There is no demonstrated pleural abnormality. Normal heart and pericardium. Normal visualized aortic arch and descending thoracic aorta. No acute ribs abnormalities. There is no demonstrated abnormality of the visualized soft tissue structures of the upper abdomen. Elevated right hemidiaphragm is seen. Right lateral chest wall surgical clips are seen. RAD/Chest PA and Lateral IMPRESSION: No acute cardiopulmonary process. No interval new findings. [facility]
[2025-08-07 03:43] VITALS: BP 156/69; PULSE 69; RESP 18; O2SAT 97
--- NOTE | 2025-08-07 03:57 | EX.ED.DYSGE1 ---
HPI History of Present Illness Chief Complaint: Chest Pain Informant: patient Narrative Narrative: Patient is a 74-year-old female with past medical history of hypertension and hypothyroidism. She states that she woke roughly an hour prior to arrival to use the bathroom. She states when she got up she noticed she was having pain mainly in her left arm. She states she felt there might be a slight amount of pain in the left chest as well. She states she googled the symptoms of heart attack and a female and was concerned when it listed atypical presentation such as arm pain. She states there is no associated nausea vomiting diaphoresis or shortness of breath. She states that the pain has spontaneously improved and it only worsens now when she tries to move her left shoulder. She states she typically sleeps on her left side. She denies any recent trauma or excessive activity. However with concern this could be cardiac in nature she presents for evaluation. [facility] Medical History History of ulceration Cardiology follow-up encounter Bradycardia Vitamin D deficiency Heart murmur Hypothyroidism Chest pain Wears hearing aid Wears dentures Wears glasses Post-menopausal Thyroid disease Difficulty swallowing History of diverticulitis Shortness of breath on exertion History of echocardiogram History of stress test Left ankle sprain Strain of left foot Left foot pain Acute pharyngitis, unspecified Acute sinusitis, unspecified Incontinence Back pain Diabetes Arthritis HTN (hypertension) Home Medications ?Medication ?Instructions ?Recorded ?Last Taken ?Type amiloride 5 mg tablet 10 mg PO DAILY DIURETIC 01/10/14 11/24/24 History vitamin E (dl, acetate) 180 mg 400 units PO DAILY 05/21/16 07/27/24 History (400 unit) capsule acetaminophen 500 mg tablet 500 mg PO Q6H PRN pain 07/08/24 Unknown History (Tylenol Extra Strength) garlic 1,000 mg capsule 1,000 mg PO QDAY 07/08/24 07/27/24 History Calcium CITRATE 2 tab PO DAILY 07/28/24 07/27/24 History CBD oil 4 drp PO BID 09/22/24 Unknown History metoprolol succinate 50 mg 50 mg PO QDAY 09/22/24 11/25/24 History tablet,extended release 24 hr (Toprol XL) Dynamic Brain 1 cap PO DAILY 09/29/24 Unknown History Dynamic Mushrooms 1 cap PO DAILY 09/29/24 Unknown History cholecalciferol (vitamin D3) 125 125 mcg PO DAILY 11/24/24 Unknown History mcg (5,000 unit) tablet levothyroxine 137 mcg tablet 137 mcg PO QAM 05/11/25 Unknown History Allergy/AdvReac Type Severity Reaction Status Date / Time levofloxacin Allergy Severe Other Verified 03/18/25 10:54 pantoprazole Allergy Severe Diarrhea Verified 03/18/25 10:54 Proton Pump Inhibitors Allergy Intermediate Other Verified 03/18/25 10:54 sucralfate Allergy Intermediate Other Verified 03/18/25 10:54 fluticasone (From Flonase) Allergy Mild UNKNOWN Verified 03/18/25 10:54 hydrochlorothiazide Allergy Mild UNKNOWN Verified 03/18/25 10:54 salicylates Allergy Mild UNKNOW Verified 03/18/25 10:54 amlodipine Allergy Other Verified 03/18/25 10:54 clindamycin Allergy Other Verified 03/18/25 10:54 Corticosteroids Allergy NEEDS Verified 03/18/25 10:54 (Glucocorticoids) FOLLOW-UP famotidine Allergy Other Verified 03/18/25 10:54 grape flavor Allergy Other Verified 03/18/25 10:54 peppermint Allergy Other Verified 03/18/25 10:54 rosuvastatin Allergy Other Verified 03/18/25 10:54 codeine AdvReac Vomiting Verified 03/18/25 10:54 dexamethasone AdvReac All blood Verified 03/18/25 10:54 cells low erythromycin base AdvReac Unknown Verified 03/18/25 10:54 (Erythromycin Base) fluticasone propionate (From AdvReac Unknown Verified 03/18/25 10:54 Flonase) lisinopril (From Zestril) AdvReac Unknown Verified 03/18/25 10:54 Penicillins AdvReac Unknown Verified 03/18/25 10:54 rofecoxib (From Vioxx) AdvReac Unknown Verified 03/18/25 10:54 terbinafine HCl (From AdvReac Unknown Verified 03/18/25 10:54 Lamisil) tetracycline (Tetracycline) AdvReac Unknown Verified 03/18/25 10:54 Family History Mother Hypertension Surgical History History of colonoscopy Hx of total thyroidectomy History of esophagogastroduodenoscopy (EGD) Hx of melanoma excision Hx of cataract surgery History of knee replacement Deviated nasal septum Carpal tunnel syndrome H/O tubal ligation History of tonsillectomy Social History Smoking Status: Never smoker alcohol intake: never substance use type: does not use caffeine: No ROS ROS ED Constitutional Constitutional ED: Denies chills or fever(s) Eyes Eyes: Denies blurry vision or change in vision ENT ENT ED: Denies sore throat Cardiovascular Cardiovascular: Reports chest pain; Denies palpitations or racing heartbeat Respiratory/Chest Respiratory/Chest: Denies cough or dyspnea Gastrointestinal Gastrointestinal: Denies abdominal pain, diarrhea, nausea or vomiting Genitourinary Genitourinary ED: Denies dysuria Musculoskeletal Musculoskeletal: Reports other Details: Positive left arm pain ; Denies back pain or neck pain Integumentary Denies rash Neurologic Neurologic: Denies headache(s), paresthesias or weakness Hematologic/Lymphatic Hematologic/Lymphatic: Denies easy bleeding or easy bruising EXAM Physical Exam Const Vital Signs: 08/07/25 02:43 08/07/25 02:50 08/07/25 03:43 Temperature 97.8 F Temperature Source Oral Pulse Rate 80 69 Respiratory Rate 16 18 Respiratory Effort Normal Blood Pressure 173/94 H 156/69 H Blood Pressure Mean 120 98 Pulse Ox 100 97 Oxygen Delivery Method Room Air Room Air 08/07/25 04:00 08/07/25 05:00 Temperature Temperature Source Pulse Rate 66 73 Respiratory Rate 18 16 Respiratory Effort Blood Pressure 145/68 H 163/83 H Blood Pressure Mean 93 109 Pulse Ox 96 98 Oxygen Delivery Method Room Air Room Air Positive well nourished and well developed General Appearance ED: well developed; Negative for pallor HEENT HEENT Narrative: Normocephalic atraumatic Eyes PERRL and EOMs intact bilaterally General Eye ED: Negative for scleral icterus Neck supple and no JVD Neck Narrative: No bony deformity or step-off of the cervical spine No midline tenderness to palpation Chest Wall palpation of chest normal Resp normal respiratory effort and clear to auscultation bilaterally Cardio regular rate and regular rhythm Rate: other Other Details: Heart is regular rate and rhythm There is a grade 3 out of 6 systolic murmur noted Radial and carotid pulses are equal and symmetric GI normal to inspection, nondistended, normoactive bowel sounds, non-tender, non-distended and no masses GI Narrative: No voluntary guarding or rigidity or pulsatile mass Auscultation: normoactive bowel sounds Palpation: soft Extremity Extremity Narrative: No asymmetric edema no pitting edema negative Homans' sign bilaterally Left upper extremity is neurovascularly intact. There is no obvious bony deformity or joint effusion. There is reproducible pain with palpation to the left anterior shoulder near the coracoid process. Patient states this is the same pain she was experiencing. She also states the pain worsens with active motion. There is no overlying soft tissue changes such as erythema or ecchymosis. Negative sulcus sign. No bony deformity or joint effusion. Neuro oriented x3 and CN's II-XII intact bilaterally Sensorium / Orientation: alert Psych mental status grossly normal Skin no rashes or lesions noted and no wounds General Skin Exam: Negative for jaundice or pallor MDM MDM MDM Narrative Medical decision making narrative: Patient arrived to the ER hypertensive but has a past medical history of this. She reported waking up to use the restroom and then noted the left shoulder pain with slight radiation towards the chest. Her history and exam would indicate that the shoulder pain is most likely musculoskeletal. However she does have mild risk factors for cardiovascular disease and her hypertension and postmenopausal female status. Therefore in order to rule out acute coronary syndrome versus cardiac dysrhythmia versus lung pathology such as pneumonia or pneumothorax basic blood work with EKG and chest x-ray were ordered. EKG showed no signs of ischemia or acute STEMI. Initial troponin was 15 delta increased by a value of 1 to 16 which is not clinically significant. Chest x-ray revealed no acute lung pathology such as pneumonia or pneumothorax and there is no widening of the mediastinum to suggest dissection. Patient also had spontaneous improvement of symptoms without any medication given in the ER. On reevaluation she is resting comfortably and vitals remained stable. Therefore at this time his history and exam indicate that this is most likely musculoskeletal pain and cardiac workup does not reveal any acute findings I feel patient is otherwise safe for discharge and can continue having this worked up as an outpatient with her family doctor History & Record Review Discussion w/independent historian: Patient Lab Data Attestation: I reviewed the patient's lab results. Labs: Laboratory Results - last 24 hr 08/07/25 08/07/25 02:46 04:43 WBC 12.5 H RBC 4.15 L Hgb 13.5 Hct 39.8 MCV 95.9 MCH 32.5 H MCHC 33.9 RDW Std Deviation 46.7 H RDW Coeff of Emil 13.2 Plt Count 246 MPV 11.5 Immature Gran % (Auto) 0.200 Neut % (Auto) 18.9 L Lymph % (Auto) 69.9 H [place] % (Auto) 7.8 Eos % (Auto) 2.4 Baso % (Auto) 0.8 Absolute Neuts (auto) 2.4 Absolute Lymphs (auto) 8.76 H Nucleated RBC % 0 Differential Comment SCANNED Diff Path Review May foll Reactive Lymphocytes 1+ Sodium 137 Potassium 4.3 Chloride 101 Carbon Dioxide 25.6 Anion Gap 11 BUN 20 H Creatinine 0.74 Estim Creat Clear Calc 73.77 Est GFR (MDRD) Non-Af 85 BUN/Creatinine Ratio 27.2 H Glucose 112 H Calcium 8.9 Magnesium 2.0 Troponin T High Sens 15 H Troponin T Hi Sens 2 Hr 16 H Radiography Diagnostic Testin view chest x-ray as interpreted by the emergency medicine physician reveals chronic elevation of the right hemidiaphragm without acute infiltrate pneumothorax pleural effusion or widening of the mediastinum Discharge Plan Triage Chief Complaint: Chest Pain ED Provider: Adryan Orozco Dx/Rx/DC Orders Clinical Impression: Nonspecific chest pain, HTN (hypertension), Hypothyroidism, Left shoulder pain Instructions: ED Chest Pain, Uncertain Cause Prescriptions: No Action garlic 1,000 mg capsule 1,000 mg PO QDAY acetaminophen [Tylenol Extra Strength] 500 mg tablet 500 mg PO Q6H PRN (Reason: pain) CBD oil 4 drp PO BID Rx Instructions: 4 drops orally BID metoprolol succinate [Toprol XL] 50 mg tablet extended release 24 hr 50 mg PO QDAY Dynamic Brain 1 cap PO DAILY Dynamic Mushrooms 1 cap PO DAILY levothyroxine 137 mcg tablet 137 mcg PO QAM amiloride 5 MG tablet 10 mg PO DAILY Patient Comments: MARIO - BRAND NAME ONLY Diuretic vitamin E (dl, acetate) 400 UNITS capsule 400 units PO DAILY Patient Comments: supplement cholecalciferol (vitamin D3) 125 mcg (5,000 unit) tablet 125 mcg PO DAILY Calcium CITRATE 300 mg tablet 2 tab PO DAILY Primary Care Provider: Tri Singh Referrals: Tri Singh MD [Primary Care Provider, Family Practice] Activity Restrictions/Additional Instructions: Your workup today revealed no sign of active heart damage or abnormal heart rhythm. The left shoulder/chest pain is most likely related to arthritis and musculoskeletal pain from physical activity and/or the manner in which you sleep. You can try using topical Voltaren cream to reduce pain or a lidocaine patch. If your symptoms return or worsen or you have any further concerns please return to the ER for repeat evaluation. As you do have risk factors for cardiovascular disease please follow-up with your family doctor discussed outpatient stress test and/or echo if needed. Print Language: Thai Disposition Disposition: Home, Self Care Discharge Date/Time: 08/07/25 05:14
[2025-08-07 04:00] VITALS: BP 145/68; PULSE 66; RESP 18; O2SAT 96
[2025-08-07 04:02] LABS: Magnesium 2.0 mg/dL (1.5-2.2); Troponin T High Sensitivity 15 ng/L (<=14)
[2025-08-07 04:03] LABS: Anion Gap 11 (5-15); BUN 20 mg/dL (4-19); BUN/Creat Ratio 27.2 RATIO (10-20); Calcium,Total 8.9 mg/dL (7.6-11.0); Carbon Dioxide 25.6 mmol/L (21.0-32.0); Chloride 101 mmol/L (98-108); Estimated Creatinine Clearance 73.77 ml/min (50-250); Glucose 112 mg/dL (70-99); Potassium 4.3 mmol/L (3.3-5.1)
[2025-08-07 04:10] LABS: Differential Comment SCANNED; Reactive Lymphocyte 1+
[2025-08-07 05:00] VITALS: BP 163/83; PULSE 73; RESP 16; O2SAT 98
[2025-08-07 05:03] LABS: Troponin T High Sens 2 HR 16 ng/L (<=14)
[2025-08-07 05:10] VITALS: BP 163/83; PULSE 73; RESP 16; TEMP 36.6; O2SAT 98
== END 2025-08-07 05:14 | disposition home or self-care (01) ==
PROVIDERS: Emergency Provider Emergency Medicine; PCP Family Medicine; Visit Provider Emergency Medicine
DX: R07.9 Chest pain, unspecified (principal); E11.9 Type 2 diabetes mellitus without complications; I10 Essential (primary) hypertension; M25.512 Pain in left shoulder; E03.9 Hypothyroidism, unspecified
CPT/HCPCS: 71046; 80048; 83735; 84484; 85025; 93005; 99282; A4216

== ENCOUNTER → 2025-08-24 | Outpatient (CLI) | payer MEDICARE, SELFPAY ==
[2025-08-24 11:08] LABS: PTHIN 32 pg/mL (11-61)
[2025-08-24 11:37] LABS: AST(SGOT) 21 U/L (<=31); Alanine Aminotransfer ALT/SGPT 18 U/L (<=34); Albumin, Serum 4.3 g/dL (3.4-4.8); Alkaline Phosphatase 41 U/L (35-104); Anion Gap 10 (5-15); BUN 17 mg/dL (4-19); BUN/Creat Ratio 24.2 RATIO (10-20); Calcium,Total 9.4 mg/dL (7.6-11.0); Carbon Dioxide 28.1 mmol/L (21.0-32.0); Chloride 102 mmol/L (98-108); Globulin 2.4 g/dL (2.2-4.2); Glucose 106 mg/dL (70-99); Potassium 4.8 mmol/L (3.3-5.1); Vitamin D,25 Hydroxy 90.9 ng/mL (30-100)
== END | disposition home or self-care (01) ==
LOC: LAB 08:58
PROVIDERS: PCP Family Medicine; Referring Provider Nurse Practitioner Adult Health; Visit Provider Nurse Practitioner Adult Health
DX: E89.0 Postprocedural hypothyroidism (principal); E21.5 Disorder of parathyroid gland, unspecified; E55.9 Vitamin D deficiency, unspecified
CPT/HCPCS: 36415; 80053; 82306; 83970; 84439; 84443